=== PATIENT | female | born 1970 | race Caucasian/White ===

== ENCOUNTER 2018-02-26 15:14 | Inpatient (IN) | payer SELFPAY ==
--- NOTE | 2018-02-26 16:20 | ER Document Report ---
ED Medical Screen (RME) - General Chief Complaint: Vomiting Stated Complaint: VOMITING/BACK AND STOMACH PAIN Time Seen by Provider: 02/26/18 16:11 Mode of Arrival: Ambulatory Information source: Patient TRAVEL OUTSIDE OF THE [place] IN LAST 30 DAYS: No - HPI Notes: 02/26/18 16:17 47 yr old female with a hx of abdominal pain with n/v, jaundice and has not had a bowel movement in 10 days 10 days. Reports last alcoholic drink was 7 days ago, normally has 2 shots per night. Denies any cp and sob but is tachycardiac with triage vitals. Patient has not seen by her primary care provider. Patient smokes roughly half a pack a day for at least 20 years. Patient denies a history of alcoholism however she frequently drinks etoh. lungs CTA S1 S2 tachycardiac noted yellow appearing skin with yellow sclera - Related Data Allergies/Adverse Reactions: No Known Allergies Allergy (Unverified 02/26/18 15:18) Physical Exam - Vital signs Vitals: Temp Pulse Resp BP Pulse Ox 98.8 F 123 H 20 169/83 H 93 02/26/18 15:30 02/26/18 15:30 02/26/18 15:30 02/26/18 15:30 02/26/18 15:30 Course - Vital Signs Vital signs: Temp Pulse Resp BP Pulse Ox 98.8 F 123 H 20 169/83 H 93 02/26/18 15:30 02/26/18 15:30 02/26/18 15:30 02/26/18 15:30 02/26/18 15:30 Doctor's Discharge - Discharge Referrals: RICHMOND WARD MD [Primary Care Provider] - Follow up as needed
--- NOTE | 2018-02-26 17:48 | RADIOLOGY REPORT (SQ) ---
EXAM DESCRIPTION: CHEST SINGLE VIEW COMPLETED DATE/TIME: 02/26/2018 5:41 pm REASON FOR STUDY: tachycardia with abd pain COMPARISON: None. EXAM PARAMETERS: NUMBER OF VIEWS: One view. TECHNIQUE: Single frontal radiographic view of the chest acquired. RADIATION DOSE: NA LIMITATIONS: None. FINDINGS: LUNGS AND PLEURA: No opacities, masses or pneumothorax. No pleural effusion. MEDIASTINUM AND HILAR STRUCTURES: No masses. Contour normal. HEART AND VASCULAR STRUCTURES: Heart normal in size. Normal vasculature. BONES: No acute findings. HARDWARE: None in the chest. OTHER: No other significant finding. IMPRESSION: NO ACUTE RADIOGRAPHIC FINDING IN THE CHEST. TECHNICAL DOCUMENTATION: JOB ID: [id number] [employer]- All Rights Reserved Reading location - IP/workstation name: [email or web address]
[2018-02-26 18:00] LABS: HEMATOCRIT 26.7 % (36.0-47.0); MEAN CORPUSCULAR HEMOGLOBIN 42.9 pg (27.0-33.4); MEAN CORPUSCULAR HGB CONC 33.8 g/dL (32.0-36.0); PLATELET COUNT 197 10^3/uL (150-450); RED CELL DISTRIBUTION WIDTH 20.8 % (11.5-14.0); WHITE BLOOD COUNT 14.9 10^3/uL (4.0-10.5)
[2018-02-26] MEDS ORDERED: ONDANSETRON HCL INJ/PF 4 MG/2 ML SDV IV ONE (18:07)
[2018-02-26 18:15] LABS: ALANINE AMINOTRANSFERASE 34 U/L (9-52); ALBUMIN 3.7 g/dL (3.5-5.0); ALKALINE PHOSPHATASE 214 U/L (38-126); BILIRUBIN,DIRECT 10.2 mg/dL (0.0-0.4); BILIRUBIN,TOTAL 12.5 mg/dL (0.2-1.3); BLOOD UREA NITROGEN 11 mg/dL (7-20); CREATINE KINASE 22 U/L (30-135); GLUCOSE 102 mg/dL (75-110); LIPASE 1620.3 U/L (23-300)
[2018-02-26 18:20] LABS: CARBON DIOXIDE 37 mmol/L (22-30); CHLORIDE 75 mmol/L (98-107); SODIUM 136.4 mmol/L (137-145)
[2018-02-26 18:21] LABS: ASPARTATE AMINO TRANSFERASE 308 U/L (14-36)
[2018-02-26 18:26] LABS: ANION GAP 24 (5-19)
[2018-02-26 18:27] LABS: CREATINE KINASE MB 0.29 ng/mL (<4.55); TROPONIN I 0.019 ng/mL
[2018-02-26 18:31] LABS: POTASSIUM 2.8 mmol/L (3.6-5.0)
[2018-02-26 18:33] LABS: ABSOLUTE LYMPHOCYTES# (MANUAL) 1.5 10^3/uL (0.5-4.7); ABSOLUTE MONOCYTES # (MANUAL) 0.1 10^3/uL (0.1-1.4); ABSOLUTE NEUTROPHILS# (MANUAL) 13.3 10^3/uL (1.7-8.2); BAND NEUTROPHILS % (MANUAL) 3 % (3-5); BASOPHILS % (MANUAL) 0 % (0-2); EOSINOPHILS % (MANUAL) 0 % (0-6); INTERNATIONAL RATION (INR) 1.42; LYMPHOCYTES % (MANUAL) 9 % (13-45); MONOCYTES % (MANUAL) 1 % (3-13); NUCLEATED RED BLOOD CELLS 1 /100 WBC (0); PROTHROMBIN TIME 18.1 SEC (11.4-15.4); SEGMENTED NEUTROPHILS % (MAN) 86 % (42-78); TOTAL CELLS COUNTED 100
[2018-02-26] MEDS: NORMAL SALINE 1000 ML 1,000 ML IV PRN ×3 (18:33→23:15)
[2018-02-26 18:34] LABS: PARTIAL THROMBOPLASTIN TIME 37.3 SEC (23.5-35.8)
[2018-02-26 18:35] LABS: ANISOCYTOSIS 2+; POIKILOCYTOSIS SLIGHT; POLYCHROMASIA 1+; TOXIC GRANULATION SLIGHT
[2018-02-26] MEDS ORDERED: POTASSIUM CHLORIDE 10 MEQ CAPSULE.ER PO ONE (18:35)
[2018-02-26] MEDS ORDERED: HYDROMORPHONE HCL INJ/PF 2 MG/ML AMPULE IV ONE (18:35)
[2018-02-26 18:36] LABS: MEAN CORPUSCULAR VOLUME 127 fl (80-97); PLATELET COMMENT ADEQUATE; TEAR DROP CELLS SLIGHT
--- NOTE | 2018-02-26 18:41 | ER Document Report ---
ED GI/ - General Chief Complaint: Vomiting Stated Complaint: VOMITING/BACK AND STOMACH PAIN Time Seen by Provider: 02/26/18 16:11 Mode of Arrival: Ambulatory Notes: The patient is a 47-year-old female, past medical history intermittent drinking , , presents with 10 days of nausea, vomiting, watery diarrhea and increased upper abdominal pain. She also noticed that her eyes were yellow. Patient has not had an alcoholic drink for the past week. She denies urinary symptoms, hematemesis, rash, flank pain, blood in her stool, fevers or chest pain. TRAVEL OUTSIDE OF THE [place] IN LAST 30 DAYS: No - Related Data Allergies/Adverse Reactions: No Known Allergies Allergy (Unverified 02/26/18 15:18) Past Medical History - General Information source: Patient - Social History Smoking Status: Current Every Day Smoker Chew tobacco use (# tins/day): No Frequency of alcohol use: Heavy Drug Abuse: None Family History: Reviewed & Not Pertinent Patient has suicidal ideation: No Patient has homicidal ideation: No Renal/ Medical History: Denies: Hx Peritoneal Dialysis Review of Systems - Review of Systems Notes: REVIEW OF SYSTEMS: CONSTITUTIONAL: -fevers, -chills EENT: -eye pain, -difficulty swallowing, -nasal congestion CARDIOVASCULAR: -chest pain, -syncope. RESPIRATORY: -cough, -SOB GASTROINTESTINAL: +upper abdominal pain, +nausea, +vomiting, +diarrhea GENITOURINARY: -dysuria, -hematuria MUSCULOSKELETAL: -back pain, -neck pain SKIN: -rash or skin lesions. HEMATOLOGIC: -easy bruising or bleeding. LYMPHATIC: -swollen, enlarged glands. NEUROLOGICAL: -altered mental status or loss of consciousness, -headache, - neurologic symptoms PSYCHIATRIC: -anxiety, -depression. ALL OTHER SYSTEMS REVIEWED AND NEGATIVE. Physical Exam - Vital signs Vitals: Temp Pulse Resp BP Pulse Ox 98.8 F 123 H 20 169/83 H 93 02/26/18 15:30 02/26/18 15:30 02/26/18 15:30 02/26/18 15:30 02/26/18 15:30 - Notes Notes: PHYSICAL EXAMINATION: GENERAL: Uncomfortable. HEAD: Atraumatic, normocephalic. EYES: Pupils equal round and reactive to light, extraocular movements intact, sclera anicteric, conjunctiva are normal. ENT: nares patent, oropharynx clear without exudates. Moist mucous membranes. NECK: Normal range of motion, supple without lymphadenopathy LUNGS: Breath sounds clear to auscultation bilaterally and equal. No wheezes rales or rhonchi. HEART: Tachycardia, regular rhythm ABDOMEN: Fluid wave, moderate epigastric and RUQ tenderness, normoactive bowel sounds. No guarding, no rebound. No masses appreciated. EXTREMITIES: Normal range of motion, no pitting or edema. No cyanosis. NEUROLOGICAL: Cranial nerves grossly intact. Normal speech, normal gait. Normal sensory and motor exams. PSYCH: Normal mood, normal affect. SKIN: Warm, Dry, normal turgor, no rashes or lesions noted. Course - Re-evaluation Re-evalutation: Patient with signs and symptoms of pancreatitis. With her elevated LFTs and bilirubin, ultrasound of her right upper quadrant performed, which showed fatty infiltrate of her liver, but no biliary pathology. Her pain and nausea are under control. She does have a leukocytosis, tachycardia and elevated lactate. Elevated lactate may related to severe sepsis, but this may also be elevated due to decreased clearance of lactate due to her liver dysfunction. Patient was pancultured and antibiotics started after 30 cc/kg IV fluids were given. Her blood pressure remained normal. Spoke to Dr. Meneses (Hospitalist) and she has accepted the patient to Tele. - Vital Signs Vital signs: Temp Pulse Resp BP Pulse Ox 98.3 F 123 H 23 H 168/88 H 90 L 02/26/18 20:00 02/26/18 15:30 02/26/18 21:45 02/26/18 18:40 02/26/18 21:45 - Laboratory Result Diagrams: 02/26/18 17:32 02/26/18 17:32 Laboratory results interpreted by me: 02/26/18 02/26/18 02/26/18 17:32 17:32 17:32 WBC 14.9 H RBC 2.10 L Hgb 9.0 L Hct 26.7 L MCV 127 H MCH 42.9 H RDW 20.8 H Seg Neuts % (Manual) 86 H Lymphocytes % (Manual) 9 L Monocytes % (Manual) 1 L Abs Neuts (Manual) 13.3 H PT 18.1 H APTT 37.3 H VBG pH VBG HCO3 Sodium 136.4 L Potassium 2.8 L* Chloride 75 L Carbon Dioxide 37 H Anion Gap 24 H Est GFR (Non-Af Amer) 50 L Lactic Acid Calcium 11.0 H Total Bilirubin 12.5 H Direct Bilirubin 10.2 H AST 308 H Alkaline Phosphatase 214 H Creatine Kinase 22 L Lipase 1620.3 H Urine Protein Urine Glucose (UA) Urine Blood Urine Nitrite Urine Bilirubin Urine Urobilinogen 02/26/18 02/26/18 02/26/18 17:59 20:16 20:16 WBC RBC Hgb Hct MCV MCH RDW Seg Neuts % (Manual) Lymphocytes % (Manual) Monocytes % (Manual) Abs Neuts (Manual) PT APTT VBG pH 7.49 H VBG HCO3 37.3 H Sodium Potassium Chloride Carbon Dioxide Anion Gap Est GFR (Non-Af Amer) Lactic Acid 6.7 H Calcium Total Bilirubin Direct Bilirubin AST Alkaline Phosphatase Creatine Kinase Lipase Urine Protein 30 H Urine Glucose (UA) 50 H Urine Blood SMALL H Urine Nitrite POSITIVE H Urine Bilirubin MODERATE H Urine Urobilinogen 4.0 H - Diagnostic Test Radiology reviewed: Image reviewed, Reports reviewed Radiology results interpreted by me: CXR: NAD CT A/P: Moderate inflammatory changes in the peripancreatic soft tissues and retroperitoneum. Hepatomegaly with diffuse fatty infiltration. RUQ US: Fatty infiltration of the liver. No acute biliary finding. - EKG Interpretation by Me EKG shows normal: Sinus rhythm, Metter Rate: Tachycardia Metter/QRS: Left axis deviation When compared to previous EKG there are: No significant change Discharge - Discharge Clinical Impression: Hypokalemia, Elevated LFTs, Elevated lactic acid level Pancreatitis Qualifiers: Chronicity: acute Pancreatitis type: unspecified pancreatitis type Acute pancreatitis complication: unspecified Qualified Code(s): K85.90 - Acute pancreatitis without necrosis or infection, unspecified Sepsis Qualifiers: Sepsis type: sepsis due to unspecified organism Qualified Code(s): A41.9 - Sepsis, unspecified organism Condition: Stable Disposition: ADMITTED INPATIENT Admitting Provider: Hospitalist - [place] [facility] Admitted: Telemetry Referrals: RICHMOND WARD MD [Primary Care Provider] - Follow up as needed
[2018-02-26] MEDS ORDERED: DEXTROSE 5%-1/2 NORMAL SALINE 1,000 ML IV ONE (18:50)
[2018-02-26 18:51] LABS: APPEARANCE,URINE CLOUDY; BILIRUBIN,URINE MODERATE (NEGATIVE); COLOR,URINE AMBER; GLUCOSE, URINE 50 mg/dL (NEGATIVE); KETONES,URINE NEGATIVE (NEGATIVE); LEUKOCYTE ESTERASE,URINE NEGATIVE (NEGATIVE); NITRITE,URINE POSITIVE (NEGATIVE); PROTEIN,URINE 30 mg/dL (NEGATIVE)
[2018-02-26] MEDS ORDERED: THIAMINE HCL 100 MG, FOLIC ACID 1 MG in NORMAL SALINE 250 ML IV ONE (18:51)
[2018-02-26 19:18] LABS: URINE AMPHETAMINES SCREEN NEGATIVE; URINE BARBITURATES SCREEN NEGATIVE; URINE BENZODIAZEPINES SCREEN NEGATIVE; URINE COCAINE SCREEN NEGATIVE; URINE MARIJUANA (THC) SCREEN NEGATIVE; URINE METHADONE SCREEN NEGATIVE; URINE PHENCYCLIDINE SCREEN NEGATIVE
--- NOTE | 2018-02-26 19:30 | RADIOLOGY REPORT (SQ) ---
EXAM DESCRIPTION: CT ABD/PELVIS WITH IV ONLY COMPLETED DATE/TIME: 02/26/2018 7:18 pm REASON FOR STUDY: no BM x 10 days, +vomiting x 10 days COMPARISON: None. TECHNIQUE: CT scan of the abdomen and pelvis performed using helical scanning technique with dynamic intravenous contrast injection. No oral contrast. Images reviewed with lung, soft tissue, and bone windows. Reconstructed coronal and sagittal MPR images reviewed. Delayed images for evaluation of the urinary system also acquired. All images stored on PACS. All CT scanners at this facility use dose modulation, iterative reconstruction, and/or weight based d osing when appropriate to reduce radiation dose to as low as reasonably achievable (ALARA). [facility]: Dose Right [facility]: CareDose [facility]: Dose Right [facility]: Teradose 4D [facility]: [employer] CONTRAST TYPE AND DOSE: contrast/concentration: Isovue 370.00 mg/ml; Total Contrast Delivered: 71.0 ml; Total Saline Delivered: 41.0 ml RENAL FUNCTION: GFR > 60. RADIATION DOSE: CT Rad equipment meets quality standard of care and radiation dose reduction techniq ues were employed. CTDIvol: 9.5 - 13.2 mGy. DLP: 2047 mGy-cm.. LIMITATIONS: None. FINDINGS: LOWER CHEST: No significant findings. No nodules or infiltrates. LIVER: Diffuse fatty infiltration. Enlarged size. No masses. No dilated ducts. SPLEEN: Normal size. No focal lesions. PANCREAS: No significant calcifications. Moderate adjacent inflammation. Pancreatic duct not dilate d. GALLBLADDER: No identified stones by CT criteria. No inflammatory changes to suggest cholecystitis. ADRENAL GLANDS: No significant masses or asymmetry. RIGHT KIDNEY AND URETER: No solid masses. No significant calcifications. No hydronephrosis or hyd roureter. LEFT KIDNEY AND URETER: No solid masses. No significant calcifications. No hydronephrosis or hydr oureter. AORTA AND VESSELS: No aneurysm. No dissection. Renal arteries, SMA, celiac without stenosis. RETROPERITONEUM: No bulky retroperitoneal adenopathy. Moderate inflammatory changes. BOWEL AND PERITONEAL CAVITY: No masses or inflammatory changes. No free fluid or peritoneal masses. APPENDIX: Normal. PELVIS: No mass. No free fluid. Decompressed bladder. ABDOMINAL WALL: No masses. No hernias. BONES: No acute findings. OTHER: No other significant finding. IMPRESSION: Moderate inflammatory changes in the peripancreatic soft tissues and retroperitoneum. Hepatomegaly with diffuse fatty infiltration. TECHNICAL DOCUMENTATION: JOB ID: [id number] [id number] Quality ID # [id number]: Final reports with documentation of one or more dose reduction techniques (e.g., Au tomated exposure control, adjustment of the mA and/or kV according to patient size, use of iterative reconstruction technique) 2010 [employer]- All Rights Reserved Reading location - IP/workstation name: [email or web address]
[2018-02-26] MEDS ORDERED: AMPICILLIN SOD/SULBACTAM 3 GM VIAL IV ONE (19:43)
[2018-02-26] MEDS: POTASSI CL 20 MEQ/50 ML RIDER 20 MEQ/50 ML RTUPB IV SCH ×2 (20:12→22:03)
[2018-02-26 20:31] LABS: VENOUS BLOOD BASE EXCESS 12.2 mmol/L; VENOUS BLOOD HCO3 37.3 mmol/L (20-32); VENOUS BLOOD PCO2 50.7 mmHg (35-63); VENOUS BLOOD PH 7.49 (7.30-7.42)
[2018-02-26] MEDS ORDERED: NORMAL SALINE 1000 ML 1,000 ML IV ONE (21:11)
--- NOTE | 2018-02-26 21:12 | RADIOLOGY REPORT (SQ) ---
EXAM DESCRIPTION: U/S ABDOMEN LIMITED W/O DOP COMPLETED DATE/TIME: 02/26/2018 9:00 pm REASON FOR STUDY: RUQ tenderness, jaundice, elevated LFTs COMPARISON: None. TECHNIQUE: Dynamic and static grayscale images acquired of the right upper quadrant and recorded on PACS. Additional selected color Doppler and spectral images recorded. LIMITATIONS: Study limited due to acoustical interference from fat or from air in the bowel. FINDINGS: PANCREAS: Visualized pancreas and duct normal. Parts of pancreas poorly seen secondary to acoustical interference from fat or from air in the bowel. LIVER: No masses. Echotexture heterogeneously increased consistent with fatty infiltration. LIVER VASCULATURE: Normal directional flow of the main portal vein and hepatic veins. GALLBLADDER: No stones. Normal wall thickness. No pericholecystic fluid. ULTRASOUND-DETECTED HEBERT'S SIGN: Negative. INTRAHEPATIC DUCTS AND COMMON DUCT: CBD and intrahepatic ducts normal caliber. No filling defects. INFERIOR VENA CAVA: limited due to acoustical interference from fat or from air in the bowel. AORTA: limited due to acoustical interference from fat or from air in the bowel. RIGHT KIDNEY: Normal size. Normal echogenicity. No solid or suspicious masses. No hydronephrosis. No calcifications. PERITONEAL CAVITY AND RIGHT PLEURAL SPACE: No ascites or effusions. OTHER: No other significant finding. IMPRESSION: Fatty infiltration of the liver. No acute biliary finding. TECHNICAL DOCUMENTATION: JOB ID: [id number] [id number] 2010 [employer]- All Rights Reserved Reading location - IP/workstation name: [email or web address]
[2018-02-26] MEDS ORDERED: DEXTROSE 40% GEL 15 GM TUBE PO PRN ×2 (22:16)
[2018-02-26] MEDS ORDERED: MAG HYDROX/AL HYDROX/SIMETH SUSP 30 ML UDCUP PO PRN (22:16)
[2018-02-26] MEDS ORDERED: DEXTROSE 50%-WATER 25 GM/50 ML DISP.SYRIN IV PRN ×2 (22:16)
[2018-02-26] MEDS ORDERED: GLUCAGON,HUMAN RECOMB 1 MG INJ SUBCUT PRN (22:16)
[2018-02-26] MEDS ORDERED: MORPHINE SULFATE 10 MG/ML INJ IV ONE (22:17)
[2018-02-26] MEDS ORDERED: ONDANSETRON 4 MG TAB.RAPDIS PO ONE (22:19)
[2018-02-26 23:08] LABS: ACETAMINOPHEN < 10 ug/mL (10-30); SALICYLATE < 1.0 mg/dL (2.0-20.0)
[2018-02-26] MEDS: HYDROMORPHONE HCL INJ/PF 2 MG/ML AMPULE IV PRN (23:09)
[2018-02-26] MEDS: PANTOPRAZOLE SODIUM 40 MG VIAL IV SCH (23:12)
--- NOTE | 2018-02-26 23:51 | EKG REPORT ---
SEVERITY:- BORDERLINE ECG - SINUS TACHYCARDIA LEFT AXIS DEVIATION CONSIDER ANTERIOR INFARCT : Confirmed by: Jessica Hinson MD 26-Feb-2018 23:50:52
[2018-02-27] MEDS: POTASSI CL 20 MEQ/50 ML RIDER 20 MEQ/50 ML RTUPB IV SCH ×2 (00:55→04:21)
[2018-02-27] MEDS ORDERED: POTASSI CL 20 MEQ/50 ML RIDER 20 MEQ/50 ML RTUPB IV ONE (01:40)
--- NOTE | 2018-02-27 01:48 | PDOC H&P ---
History of Present Illness Admission Date/PCP: 02/26/18 22:00 RICHMOND WARD MD Patient complains of: Persistent nausea and vomiting History of Present Illness: AMBREEN ZENG is a 47 year old female with alcohol dependence comes to the emergency department complaining of persistent nausea and vomiting has been worsening, she has been vomiting every 30 minutes the day of admission. Patient tells me that her symptoms started 10 days ago with nausea, vomiting, watery non-bloody diarrhea and abdominal pain in the epigastric and mid abdominal area, sharp in nature, across the abdomen radiated to the back, up to 10/10 intensity. At the same time her boyfriend who is at the bedside noticed her eyes and skin turning yellow. Patient has been unable to have any solid food or any fluid for the last few days as she is vomiting everything, denies blood in the vomit. Denies fever or chills. Noticed her urine with bad odor and dark, but denies dysuria, hematuria or frequency. As me that she takes aspirin and ibuprofen occasionally, denies taking aspirin. Does not take any prescribed medications at home. Patient drinks on a daily basis, last drink 2 days ago. Laboratory was done in the emergency department with multiple laboratory abnormalities, consistent with acute pancreatitis, deranged LFTs, UTI, leukocytosis with left shift and others detailed below. Right upper ultrasound is fatty infiltrate of her liver and hepatomegaly CT abdomen and pelvis shows pancreatitis Patient was pancultured and antibiotic started after 30 cc/kg IV fluids given. Her blood pressure has remained slightly elevated but the heart rate has been elevated in the 120s. Lactic acid back at 6.7. Social History Information Source: Patient, Relative - Boyfriend Lives with: Spouse/Significant other Smoking Status: Current Every Day Smoker Cigarettes Packs Per Day: 0.5 Last Time Smoked: 1 week ago Frequency of Alcohol Use: Heavy - Drinks on a daily basis for the last 4 years Amount of Alcoholic Beverages Per Day: 56 drinks a day, Rum Last Alcohol Use: 02/25/18 Hx Recreational Drug Use: No Family History Family History: Reviewed & Not Pertinent Family History: Mother of gallbladder complications. Father at 68 years old with history of hypertension Parental Family History Reviewed: Yes - As Above Children Family History Reviewed: NA Sibling(s) Family History Reviewed.: NA Medication/Allergy Allergies/Adverse Reactions: No Known Allergies Allergy (Unverified 02/26/18 15:18) Review of Systems Review of Systems: As outlined in the HPI, all others negative Physical Exam Vital Signs: Temp Pulse Resp BP Pulse Ox 98.3 F 123 H 15 125/72 95 02/26/18 20:00 02/26/18 15:30 02/27/18 00:01 02/27/18 00:01 02/27/18 00:01 Intake & Output 02/25/18 02/26/18 02/27/18 06:59 06:59 06:59 Intake Total 2095 Output Total 1 Balance 2094 Additional comments: General appearance: Ill looking, jaundice, alert and cooperative, and appears to be in no acute distress Head: Normocephalic Eyes: PEERL, EOMI, vision is grossly intact, sclera icteric. ears: External auditory canal and tympanic membranes clear, hearing grossly intact. Nose: No nasal discharge. Throat: Oral cavity and pharynx normal. Oral mucosa very dry. No inflammation, swelling, exudate or lesions. Neck: Neck supple, nontender without lymphadenopathy, masses or thyromegaly. Cardiac: Normal S1 and S2. No S3, S4 or murmurs. Rhythm is regular and tachycardic. There is no peripheral edema, cyanosis or pallor. Extremities are warm and well perfused. Capillary refill is less than 2 seconds. No carotid bruits. Lungs: Clear to auscultation and percussion without rales, rhonchi, wheezing or diminished breath sounds. Not using accessory muscles. Abdomen: Positive bowel sounds. Soft. Diffused tenderness in the epigastric area, mild distended. No guarding or rebound. No masses. Liver and spleen unable to evaluate secondary to pain and body habitus. Extremities: No significant deformity or joint abnormality. No edema. Peripheral pulses intact. No varicosities. Neurological: Cranial nerves II through XII grossly intact. Strength and sensation symmetric and intact throughout. Reflexes 2+ throughout. Skin: Skin and mucosa jaundice, texture and turgor with no lesions or eruptions , warm and dry. Psychiatric: The mental examination revealed the patient was oriented to person , place, and time. The patient was able to demonstrate good judgment on recent , without hallucinations, abnormal affect or abnormal behaviors. Results Laboratory Results: 02/26/18 02/26/18 02/26/18 17:32 17:32 17:32 WBC 14.9 H RBC 2.10 L Hgb 9.0 L Hct 26.7 L MCV 127 H MCH 42.9 H MCHC 33.8 RDW 20.8 H Plt Count 197 Seg Neuts % (Manual) 86 H Band Neutrophils % 3 Lymphocytes % (Manual) 9 L Atypical Lymphs % 1 Monocytes % (Manual) 1 L Abs Neuts (Manual) 13.3 H Abs Lymphs (Manual) 1.5 Platelet Comment ADEQUATE Polychromasia 1+ Poikilocytosis SLIGHT Basophilic Stippling PRESENT Anisocytosis 2+ Macrocytosis 4+ Tear Drop Cells SLIGHT PT INR APTT VBG pH VBG pCO2 VBG HCO3 Sodium 136.4 L Potassium 2.8 L* Chloride 75 L Carbon Dioxide 37 H Anion Gap 24 H BUN 11 Creatinine 1.17 Est GFR ( Amer) > 60 Est GFR (Non-Af Amer) 50 L Glucose 102 Lactic Acid Calcium 11.0 H Total Bilirubin 12.5 H Direct Bilirubin 10.2 H AST 308 H ALT 34 Alkaline Phosphatase 214 H Ammonia Creatine Kinase 22 L CK-MB (CK-2) 0.29 Troponin I 0.019 Albumin 3.7 Lipase 1620.3 H Urine Color Urine Appearance Urine pH Ur Specific [place] Urine Protein Urine Glucose (UA) Urine Ketones Urine Blood Urine Nitrite Urine Bilirubin Urine Urobilinogen Urine WBC (Auto) Urine RBC (Auto) U Hyaline Cast (Auto) Urine Bacteria (Auto) Urine WBC Clumps Squamous Epi Cells Auto U Non-Squamous Epis Auto Urine Mucus (Auto) Urine Opiates Screen Ur Barbiturates Screen Ur Phencyclidine Scrn Ur Amphetamines Screen U Benzodiazepines Scrn Urine Cocaine Screen U Marijuana (THC) Screen Hepatitis A IgM Ab Hep Bs Antigen Hep B Core IgM Ab Hepatitis C Antibody 02/26/18 02/26/18 02/26/18 17:32 17:32 17:59 WBC RBC Hgb Hct MCV MCH MCHC RDW Plt Count Seg Neuts % (Manual) Band Neutrophils % Lymphocytes % (Manual) Atypical Lymphs % Monocytes % (Manual) Abs Neuts (Manual) Abs Lymphs (Manual) Platelet Comment Polychromasia Poikilocytosis Basophilic Stippling Anisocytosis Macrocytosis Tear Drop Cells PT 18.1 H INR 1.42 APTT 37.3 H VBG pH VBG pCO2 VBG HCO3 Sodium Potassium Chloride Carbon Dioxide Anion Gap BUN Creatinine Est GFR ( Amer) Est GFR (Non-Af Amer) Glucose Lactic Acid Calcium Total Bilirubin Direct Bilirubin AST ALT Alkaline Phosphatase Ammonia Creatine Kinase CK-MB (CK-2) Troponin I Albumin Lipase Urine Color SUDEEP Urine Appearance CLOUDY Urine pH 5.0 Ur Specific [place] 1.020 Urine Protein 30 H Urine Glucose (UA) 50 H Urine Ketones NEGATIVE Urine Blood SMALL H Urine Nitrite POSITIVE H Urine Bilirubin MODERATE H Urine Urobilinogen 4.0 H Urine WBC (Auto) 10 Urine RBC (Auto) 1 U Hyaline Cast (Auto) 40 Urine Bacteria (Auto) 3+ Urine WBC Clumps OCC Squamous Epi Cells Auto 15 U Non-Squamous Epis Auto 2 Urine Mucus (Auto) MOD Urine Opiates Screen Ur Barbiturates Screen Ur Phencyclidine Scrn Ur Amphetamines Screen U Benzodiazepines Scrn Urine Cocaine Screen U Marijuana (THC) Screen Hepatitis A IgM Ab Pending Hep Bs Antigen Pending Hep B Core IgM Ab Pending Hepatitis C Antibody Pending 02/26/18 02/26/18 02/26/18 17:59 18:30 20:16 WBC RBC Hgb Hct MCV MCH MCHC RDW Plt Count Seg Neuts % (Manual) Band Neutrophils % Lymphocytes % (Manual) Atypical Lymphs % Monocytes % (Manual) Abs Neuts (Manual) Abs Lymphs (Manual) Platelet Comment Polychromasia Poikilocytosis Basophilic Stippling Anisocytosis Macrocytosis Tear Drop Cells PT INR APTT VBG pH 7.49 H VBG pCO2 50.7 VBG HCO3 37.3 H Sodium Potassium Chloride Carbon Dioxide Anion Gap BUN Creatinine Est GFR ( Amer) Est GFR (Non-Af Amer) Glucose Lactic Acid Calcium Total Bilirubin Direct Bilirubin AST ALT Alkaline Phosphatase Ammonia 13.7 Creatine Kinase CK-MB (CK-2) Troponin I Albumin Lipase Urine Color Urine Appearance Urine pH Ur Specific [place] Urine Protein Urine Glucose (UA) Urine Ketones Urine Blood Urine Nitrite Urine Bilirubin Urine Urobilinogen Urine WBC (Auto) Urine RBC (Auto) U Hyaline Cast (Auto) Urine Bacteria (Auto) Urine WBC Clumps Squamous Epi Cells Auto U Non-Squamous Epis Auto Urine Mucus (Auto) Urine Opiates Screen NEGATIVE Ur Barbiturates Screen NEGATIVE Ur Phencyclidine Scrn NEGATIVE Ur Amphetamines Screen NEGATIVE U Benzodiazepines Scrn NEGATIVE Urine Cocaine Screen NEGATIVE U Marijuana (THC) Screen NEGATIVE Hepatitis A IgM Ab Hep Bs Antigen Hep B Core IgM Ab Hepatitis C Antibody 02/26/18 20:16 WBC RBC Hgb Hct MCV MCH MCHC RDW Plt Count Seg Neuts % (Manual) Band Neutrophils % Lymphocytes % (Manual) Atypical Lymphs % Monocytes % (Manual) Abs Neuts (Manual) Abs Lymphs (Manual) Platelet Comment Polychromasia Poikilocytosis Basophilic Stippling Anisocytosis Macrocytosis Tear Drop Cells PT INR APTT VBG pH VBG pCO2 VBG HCO3 Sodium Potassium Chloride Carbon Dioxide Anion Gap BUN Creatinine Est GFR ( Amer) Est GFR (Non-Af Amer) Glucose Lactic Acid 6.7 H Calcium Total Bilirubin Direct Bilirubin AST ALT Alkaline Phosphatase Ammonia Creatine Kinase CK-MB (CK-2) Troponin I Albumin Lipase Urine Color Urine Appearance Urine pH Ur Specific [place] Urine Protein Urine Glucose (UA) Urine Ketones Urine Blood Urine Nitrite Urine Bilirubin Urine Urobilinogen Urine WBC (Auto) Urine RBC (Auto) U Hyaline Cast (Auto) Urine Bacteria (Auto) Urine WBC Clumps Squamous Epi Cells Auto U Non-Squamous Epis Auto Urine Mucus (Auto) Urine Opiates Screen Ur Barbiturates Screen Ur Phencyclidine Scrn Ur Amphetamines Screen U Benzodiazepines Scrn Urine Cocaine Screen U Marijuana (THC) Screen Hepatitis A IgM Ab Hep Bs Antigen Hep B Core IgM Ab Hepatitis C Antibody Impressions: Abdomen/Pelvis CT 02/26/18 16:12 IMPRESSION: Moderate inflammatory changes in the peripancreatic soft tissues and retroperitoneum. Hepatomegaly with diffuse fatty infiltration. Chest X-Ray 02/26/18 16:15 IMPRESSION: NO ACUTE RADIOGRAPHIC FINDING IN THE CHEST. Abdomen Ultrasound 02/26/18 18:35 IMPRESSION: Fatty infiltration of the liver. No acute biliary finding. Assessment & Plan - Diagnosis (1) Acute pancreatitis Qualifiers: Pancreatitis type: alcohol induced Is this a current diagnosis for this admission?: Yes Plan: Alcohol-induced acute pancreatitis in this patient with alcohol dependence, lipase 1620, 2 L IV fluid normal saline bolus ordered, I will order 1 more liter and continue with normal saline at 200 cc/h, patient will remain n.p.o., will repeat lipase in the morning. IV pain medications, IV antiemetics. IV Protonix. Last drink 2 days ago, serum alcohol levels negative. (2) Elevated LFTs Is this a current diagnosis for this admission?: Yes Plan: Deranged LFTs, AST 308, ALT 34, AF 214, TB 12.5, DB 10, right upper ultrasound negative for gallbladder abnormalities, can be inflammatory secondary to acute pancreatitis or also alcohol induced. To complete the workup I am sending serum Tylenol and salicylate levels. Hepatitis panel pending. (3) UTI (urinary tract infection) Qualifiers: Indwelling urinary catheter type: unspecified Is this a current diagnosis for this admission?: Yes Plan: I will place the patient on IV Rocephin, please follow blood cultures and urine cultures, patient is on aggressive IV fluid hydration. (4) Lactic acidosis Is this a current diagnosis for this admission?: Yes Plan: Lactic acid 6.7, likely multifactorial, I will place order for lactic acid every 4 hours until normalized. (5) Metabolic alkalosis Is this a current diagnosis for this admission?: Yes (6) Coagulopathy Is this a current diagnosis for this admission?: Yes Plan: INR 1.42, patient likely has liver cirrhosis. She is not on any medication at home. (7) Hypokalemia Is this a current diagnosis for this admission?: Yes Plan: Potassium 2.8, will replete with 20 mEq IV. (8) Hypochloremia Is this a current diagnosis for this admission?: Yes Plan: Hypochloremia associated to metabolic alkalosis, likely secondary to her intractable vomiting, tells me that she has been vomiting every 30 minutes. Will reassess in the morning after aggressive IV fluid hydration. - Time Time Spent: 50 to 70 Minutes - Inpatient Certification Based on my medical assessment, after consideration of the patient's comorbidities, presenting symptoms, or acuity I expect that the services needed warrant INPATIENT care.: Yes I certify that my determination is in accordance with my understanding of Medicare's requirements for reasonable and necessary INPATIENT services [42 CFR 412.3e].: Yes Medical Necessity: Need Close Monitoring Due to Risk of Patient Decompensation, Need For IV Fluids, Risk of Complication if Not Cared For in Hospital
[2018-02-27] MEDS: HYDROMORPHONE HCL INJ/PF 2 MG/ML AMPULE IV PRN ×4 (04:20→22:13)
[2018-02-27] MEDS: METOCLOPRAMIDE HCL INJ/PF 10 MG/2 ML SDV IV PRN (06:05)
[2018-02-27] MEDS: HEPARIN SOD (PORCINE) 5,000 UNIT/ML 1 ML SYRINGE SUBCUT SCH ×3 (06:10→22:13)
[2018-02-27 06:28] LABS: INTERNATIONAL RATION (INR) 1.49; PROTHROMBIN TIME 18.8 SEC (11.4-15.4)
[2018-02-27 06:35] LABS: ABSOLUTE BASOPHILS # (AUTO) 0.1 10^3/uL (0.0-0.2); ABSOLUTE EOSINOPHILS # (AUTO) 0.1 10^3/uL (0.0-0.6); ABSOLUTE LYMPHOCYTES (AUTO) 1.9 10^3/uL (0.5-4.7); ABSOLUTE MONOCYTES (AUTO) 0.7 10^3/uL (0.1-1.4); ABSOLUTE NEUT (AUTO) 11.4 10^3/uL (1.7-8.2); BASOPHILS % (AUTO) 0.6 % (0-2); EOSINOPHILS % (AUTO) 0.7 % (0-6); HEMATOCRIT 21.9 % (36.0-47.0); LYMPHOCYTES % (AUTO) 13.4 % (13-45); MEAN CORPUSCULAR HEMOGLOBIN 42.3 pg (27.0-33.4); MEAN CORPUSCULAR HGB CONC 33.4 g/dL (32.0-36.0); MEAN CORPUSCULAR VOLUME 127 fl (80-97); MONOCYTES % (AUTO) 4.7 % (3-13); PLATELET COUNT 160 10^3/uL (150-450); RED BLOOD COUNT 1.73 10^6/uL (3.72-5.28); RED CELL DISTRIBUTION WIDTH 21.7 % (11.5-14.0); SEGMENTED NEUTROPHILS % (AUTO) 80.6 % (42-78); TOTAL CELLS COUNTED % (AUTO) 100 %; WHITE BLOOD COUNT 14.1 10^3/uL (4.0-10.5)
[2018-02-27 06:40] LABS: ARTERIAL BLOOD BASE EXCESS 3.4 mmol/L; ARTERIAL BLOOD FIO2 2L; ARTERIAL BLOOD H2CO3 1.21 mmol/L (1.05-1.35); ARTERIAL BLOOD HCO3 27.6 mmol/L (20-26); ARTERIAL BLOOD O2 SATURATION 96.7 % (94-98); ARTERIAL BLOOD PCO2 40.3 mmHg (35-45); ARTERIAL BLOOD PH 7.45 (7.35-7.45); ARTERIAL BLOOD PO2 83.4 mmHg (80-100); ARTERIAL BLOOD TOTAL CO2 28.9 mmol/L (21-25)
[2018-02-27 06:52] LABS: ALANINE AMINOTRANSFERASE 33 U/L (9-52); ALBUMIN 2.9 g/dL (3.5-5.0); ALKALINE PHOSPHATASE 155 U/L (38-126); ANION GAP 14 (5-19); ASPARTATE AMINO TRANSFERASE 244 U/L (14-36); BILIRUBIN,DIRECT 11.7 mg/dL (0.0-0.4); BILIRUBIN,TOTAL 13.4 mg/dL (0.2-1.3); BLOOD UREA NITROGEN 11 mg/dL (7-20); CALCIUM 8.3 mg/dL (8.4-10.2); CARBON DIOXIDE 30 mmol/L (22-30); CHLORIDE 94 mmol/L (98-107); GLUCOSE 83 mg/dL (75-110); LIPASE 870.3 U/L (23-300); POTASSIUM 3.7 mmol/L (3.6-5.0); TOTAL PROTEIN 6.4 g/dL (6.3-8.2)
[2018-02-27 06:55] LABS: HEMOGLOBIN 7.3 g/dL (12.0-15.5)
[2018-02-27 07:02] LABS: ANISOCYTOSIS 2+; OVALOCYTES 2+; PLATELET COMMENT ADEQUATE; POIKILOCYTOSIS 2+; POLYCHROMASIA SLIGHT; ROULEAUX 2+; STOMATOCYTES SLIGHT
[2018-02-27] MEDS: NORMAL SALINE 1000 ML 1,000 ML IV PRN ×3 (07:15→22:15)
[2018-02-27] MEDS: MAGNESIUM SULFATE 1 GM/D5W 100 ML IV SCH ×2 (09:25→12:40)
[2018-02-27] MEDS ORDERED: CEFTRIAXONE 1 GM/D5W RTU 1 GM/50 ML RTUPB IV SCH (10:00)
[2018-02-27] MEDS ORDERED: MAGNESIUM SULFATE/D5W 1 GM/100 ML RTUPB IV SCH (10:30)
[2018-02-27] MEDS: PANTOPRAZOLE SODIUM 40 MG VIAL IV SCH (12:29)
[2018-02-27] MEDS: CEFTRIAXONE SODIUM 1,000 MG in DEXTROSE 5%-WATER 50 ML IV SCH (14:30)
[2018-02-27 14:54] LABS: PATH REVIEW PATHOLOGIST REVIEWED
--- NOTE | 2018-02-27 18:37 | PDOC PROGRESS REPORT ---
Subjective Progress Note for:: 02/27/18 Subjective:: No adverse events overnight. No new complaints. She starting to have a little urine output. She says her belly is not hurting her anymore. He still does not have much of an appetite. No chest pain or palpitations. No nausea or vomiting. Reason For Visit: ACUTE PANCREATITIS, LACTIC ACIDOSIS Physical Exam Vital Signs: Temp Pulse Resp BP Pulse Ox 99.0 F 115 H 20 124/67 93 02/27/18 14:48 02/27/18 14:48 02/27/18 14:48 02/27/18 14:48 02/27/18 14:48 Intake & Output 02/26/18 02/27/18 02/28/18 06:59 06:59 06:59 Intake Total 2146 2420 Output Total 1 Balance 2145 2420 Weight 75.296 kg General appearance: PRESENT: no acute distress, cooperative, disheveled, obese Respiratory exam: PRESENT: clear to auscultation alejandra, unlabored. ABSENT: rales , rhonchi, tachypnea, wheezes Cardiovascular exam: PRESENT: RRR, +S1, +S2. ABSENT: systolic murmur Vascular exam: PRESENT: normal capillary refill GI/Abdominal exam: PRESENT: hypoactive bowel sounds, soft. ABSENT: guarding, rebound, tenderness Extremities exam: ABSENT: clubbing, pedal edema Musculoskeletal exam: PRESENT: normal inspection. ABSENT: deformity Neurological exam: PRESENT: alert, awake, oriented to person, oriented to place , oriented to time Psychiatric exam: PRESENT: appropriate affect, normal mood Skin exam: PRESENT: dry, warm Results Laboratory Results: 02/27/18 06:15 02/27/18 06:15 02/27/18 02/27/18 02/27/18 00:53 06:15 06:15 WBC 14.1 H RBC 1.73 L Hgb 7.3 L Hct 21.9 L MCV 127 H MCH 42.3 H MCHC 33.4 RDW 21.7 H Plt Count 160 Seg Neutrophils % 80.6 H Lymphocytes % 13.4 Monocytes % 4.7 Eosinophils % 0.7 Basophils % 0.6 Absolute Neutrophils 11.4 H Absolute Lymphocytes 1.9 Absolute Monocytes 0.7 Absolute Eosinophils 0.1 Absolute Basophils 0.1 Carbonic Acid HCO3/H2CO3 Ratio ABG pH ABG pCO2 ABG pO2 ABG HCO3 ABG O2 Saturation ABG Base Excess FiO2 Sodium 138.0 Potassium 3.7 Chloride 94 L Carbon Dioxide 30 Anion Gap 14 BUN 11 Creatinine 1.02 Est GFR ( Amer) > 60 Est GFR (Non-Af Amer) 59 L Glucose 83 Lactic Acid 4.6 H Calcium 8.3 L Phosphorus 2.0 L Magnesium 0.6 L* Total Bilirubin 13.4 H AST 244 H ALT 33 Alkaline Phosphatase 155 H Total Protein 6.4 Albumin 2.9 L Lipase 870.3 H 02/27/18 02/27/18 06:30 09:25 WBC RBC Hgb Hct MCV MCH MCHC RDW Plt Count Seg Neutrophils % Lymphocytes % Monocytes % Eosinophils % Basophils % Absolute Neutrophils Absolute Lymphocytes Absolute Monocytes Absolute Eosinophils Absolute Basophils Carbonic Acid 1.21 HCO3/H2CO3 Ratio 22:1 ABG pH 7.45 ABG pCO2 40.3 ABG pO2 83.4 ABG HCO3 27.6 H ABG O2 Saturation 96.7 ABG Base Excess 3.4 FiO2 2L Sodium Potassium Chloride Carbon Dioxide Anion Gap BUN Creatinine Est GFR ( Amer) Est GFR (Non-Af Amer) Glucose Lactic Acid 3.6 H Calcium Phosphorus Magnesium Total Bilirubin AST ALT Alkaline Phosphatase Total Protein Albumin Lipase Impressions: Abdomen/Pelvis CT 02/26/18 16:12 IMPRESSION: Moderate inflammatory changes in the peripancreatic soft tissues and retroperitoneum. Hepatomegaly with diffuse fatty infiltration. Chest X-Ray 02/26/18 16:15 IMPRESSION: NO ACUTE RADIOGRAPHIC FINDING IN THE CHEST. Abdomen Ultrasound 02/26/18 18:35 IMPRESSION: Fatty infiltration of the liver. No acute biliary finding. Assessment & Plan - Diagnosis (1) Acute pancreatitis Qualifiers: Pancreatitis type: alcohol induced Is this a current diagnosis for this admission?: Yes Plan: N.p.o. IV fluids. Gut rest. (2) UTI (urinary tract infection) Qualifiers: Indwelling urinary catheter type: unspecified Is this a current diagnosis for this admission?: Yes Plan: She is on IV antibiotics. Cultures are pending. (3) Hypomagnesemia Is this a current diagnosis for this admission?: Yes Plan: Gave her a lot of IV magnesium this morning. A repeat level is pending. I suspect she will need more. - Time Time Spent with patient: 25-34 minutes
[2018-02-27] MEDS: MAGNESIUM SULFATE/D5W 1 GM/100 ML RTUPB IV SCH ×2 (22:14→23:27)
[2018-02-28] MEDS: MAGNESIUM SULFATE/D5W 1 GM/100 ML RTUPB IV SCH (00:28)
[2018-02-28] MEDS: HEPARIN SOD (PORCINE) 5,000 UNIT/ML 1 ML SYRINGE SUBCUT SCH ×3 (05:31→21:11)
[2018-02-28] MEDS: HYDROMORPHONE HCL INJ/PF 2 MG/ML AMPULE IV PRN ×2 (05:33→21:11)
[2018-02-28 05:40] LABS: HEPATITIS A AB IGM Negative (Negative); HEPATITIS B CORE AB IGM Negative (Negative); HEPATITS B SURFACE ANTIGEN Negative (Negative)
[2018-02-28] MEDS: RINGERS SOLUTION,LACTATED 1,000 ML IV PRN ×3 (05:42→22:41)
[2018-02-28 08:31] LABS: HEMATOCRIT 19.5 % (36.0-47.0); MEAN CORPUSCULAR HEMOGLOBIN 43.7 pg (27.0-33.4); MEAN CORPUSCULAR HGB CONC 33.7 g/dL (32.0-36.0); MEAN CORPUSCULAR VOLUME 130 fl (80-97); PLATELET COUNT 163 10^3/uL (150-450); RED BLOOD COUNT 1.51 10^6/uL (3.72-5.28); RED CELL DISTRIBUTION WIDTH 21.3 % (11.5-14.0); WHITE BLOOD COUNT 13.9 10^3/uL (4.0-10.5)
[2018-02-28 08:35] LABS: HEMOGLOBIN 6.6 g/dL (12.0-15.5)
[2018-02-28] MEDS: PANTOPRAZOLE SODIUM 40 MG VIAL IV SCH (09:16)
[2018-02-28 09:49] LABS: FOLATE 4.18 ng/mL (>2.76)
[2018-02-28] MEDS ORDERED: NORMAL SALINE 250 ML IV PRN ×2 (10:41)
[2018-02-28] MEDS ORDERED: CYANOCOBALAMIN (VITAMIN B-12) INJ 1000 MCG/1 ML VIAL IM ONE (10:43)
[2018-02-28] MEDS ORDERED: THIAMINE HCL 100 MG, FOLIC ACID 1 MG in NORMAL SALINE 250 ML IV ONE (13:00)
[2018-02-28] MEDS: CEFTRIAXONE SODIUM 1,000 MG in DEXTROSE 5%-WATER 50 ML IV SCH (15:05)
--- NOTE | 2018-02-28 16:12 | PDOC PROGRESS REPORT ---
Subjective Progress Note for:: 02/28/18 Subjective:: No adverse events overnight. No new complaints. Urine output has been excellent. She is asking if she can have something to eat or drink now. No abdominal pain. No chest pain or palpitations. No nausea or vomiting. Reason For Visit: ACUTE PANCREATITIS, LACTIC ACIDOSIS Physical Exam Vital Signs: Temp Pulse Resp BP Pulse Ox 98.9 F 105 H 16 131/62 H 97 02/28/18 15:43 02/28/18 15:43 02/28/18 15:43 02/28/18 15:43 02/28/18 14:43 Intake & Output 02/27/18 02/28/18 03/01/18 06:59 06:59 06:59 Intake Total 2146 4720 1390 Output Total 1 Balance 2145 4720 1390 Weight 75 kg General appearance: PRESENT: no acute distress, cooperative, disheveled, obese Respiratory exam: PRESENT: clear to auscultation alejandra, unlabored. ABSENT: rales , rhonchi, tachypnea, wheezes Cardiovascular exam: PRESENT: RRR, +S1, +S2. ABSENT: systolic murmur Vascular exam: PRESENT: normal capillary refill GI/Abdominal exam: PRESENT: hypoactive bowel sounds, soft. ABSENT: guarding, rebound, tenderness Extremities exam: ABSENT: clubbing, pedal edema Musculoskeletal exam: PRESENT: normal inspection. ABSENT: deformity Neurological exam: PRESENT: alert, awake, oriented to person, oriented to place , oriented to time Psychiatric exam: PRESENT: appropriate affect, normal mood Skin exam: PRESENT: dry, warm Results Laboratory Results: 02/28/18 06:03 02/27/18 06:15 02/27/18 02/28/18 02/28/18 19:53 06:03 06:03 WBC 13.9 H RBC 1.51 L Hgb 6.6 L Hct 19.5 L MCV 130 H MCH 43.7 H MCHC 33.7 RDW 21.3 H Plt Count 163 Magnesium 1.2 L* 2.1 Vitamin B12 Folate Blood Type Antibody Screen 02/28/18 02/28/18 06:03 11:37 WBC RBC Hgb Hct MCV MCH MCHC RDW Plt Count Magnesium Vitamin B12 551.0 Folate 4.18 Blood Type A POSITIVE Antibody Screen NEGATIVE Impressions: Abdomen/Pelvis CT 02/26/18 16:12 IMPRESSION: Moderate inflammatory changes in the peripancreatic soft tissues and retroperitoneum. Hepatomegaly with diffuse fatty infiltration. Chest X-Ray 02/26/18 16:15 IMPRESSION: NO ACUTE RADIOGRAPHIC FINDING IN THE CHEST. Abdomen Ultrasound 02/26/18 18:35 IMPRESSION: Fatty infiltration of the liver. No acute biliary finding. Assessment & Plan - Diagnosis (1) Acute pancreatitis Qualifiers: Pancreatitis type: alcohol induced Is this a current diagnosis for this admission?: Yes Plan: We are stopping her IV fluids and put her on clears monitor her response. (2) UTI (urinary tract infection) Qualifiers: Indwelling urinary catheter type: unspecified Is this a current diagnosis for this admission?: Yes Plan: She is on IV antibiotics. Cultures are pending. (3) Hypomagnesemia Is this a current diagnosis for this admission?: Yes Plan: Resolved. - Time Time Spent with patient: 25-34 minutes
[2018-02-28] MEDS: ACETAMINOPHEN 325 MG TABLET PO PRN (17:28)
[2018-03-01] MEDS: HEPARIN SOD (PORCINE) 5,000 UNIT/ML 1 ML SYRINGE SUBCUT SCH ×3 (05:23→21:21)
[2018-03-01 06:07] LABS: HEPATITIS C VIRUS ANTIBODY 0.1 s/co ratio (0.0-0.9)
[2018-03-01 06:12] LABS: HEMATOCRIT 29.1 % (36.0-47.0); MEAN CORPUSCULAR HGB CONC 35.3 g/dL (32.0-36.0); PLATELET COUNT 190 10^3/uL (150-450); RED CELL DISTRIBUTION WIDTH 31.7 % (11.5-14.0)
[2018-03-01 06:16] LABS: HEMOGLOBIN 10.3 g/dL (12.0-15.5)
[2018-03-01 06:18] LABS: MEAN CORPUSCULAR VOLUME 108 fl (80-97)
[2018-03-01] MEDS: RINGERS SOLUTION,LACTATED 1,000 ML IV PRN (08:00)
[2018-03-01] MEDS: ACETAMINOPHEN 325 MG TABLET PO PRN ×2 (08:02→19:53)
[2018-03-01] MEDS: CYANOCOBALAMIN (VITAMIN B-12) INJ 1000 MCG/1 ML VIAL IM SCH (09:10)
[2018-03-01] MEDS: PANTOPRAZOLE SODIUM 40 MG VIAL IV SCH (09:10)
[2018-03-01] MEDS: THIAMINE HCL 100 MG, FOLIC ACID 1 MG in NORMAL SALINE 250 ML IV SCH (09:11)
[2018-03-01] MEDS: CEFTRIAXONE SODIUM 1,000 MG in DEXTROSE 5%-WATER 50 ML IV SCH (13:02)
--- NOTE | 2018-03-01 16:47 | PDOC PROGRESS REPORT ---
Subjective Progress Note for:: 03/01/18 Subjective:: No adverse events overnight. No new complaints. Vital signs stable. She is asking if she can advance her diet because she been tolerating clear liquids without difficulty. Urine output has been excellent. Reason For Visit: ACUTE PANCREATITIS, LACTIC ACIDOSIS Physical Exam Vital Signs: Temp Pulse Resp BP Pulse Ox 97.4 F 99 18 142/76 H 96 03/01/18 11:36 03/01/18 14:00 03/01/18 11:36 03/01/18 11:36 03/01/18 11:36 Intake & Output 02/28/18 03/01/18 03/02/18 06:59 06:59 06:59 Intake Total 4720 4976.2 1307.2 Balance 4720 4976.2 1307.2 Weight 75 kg 77.9 kg General appearance: PRESENT: no acute distress, cooperative, disheveled, obese Respiratory exam: PRESENT: clear to auscultation alejandra, unlabored. ABSENT: rales , rhonchi, tachypnea, wheezes Cardiovascular exam: PRESENT: RRR, +S1, +S2. ABSENT: systolic murmur Vascular exam: PRESENT: normal capillary refill GI/Abdominal exam: PRESENT: hypoactive bowel sounds, soft. ABSENT: guarding, rebound, tenderness Extremities exam: ABSENT: clubbing, pedal edema Musculoskeletal exam: PRESENT: normal inspection. ABSENT: deformity Neurological exam: PRESENT: alert, awake, oriented to person, oriented to place , oriented to time Psychiatric exam: PRESENT: appropriate affect, normal mood Skin exam: PRESENT: dry, warm Results Laboratory Results: 03/01/18 05:42 02/27/18 06:15 02/28/18 03/01/18 11:37 05:42 WBC 15.0 H RBC 2.70 L Hgb 10.3 L D Hct 29.1 L MCV 108 H D MCH 38.0 H MCHC 35.3 RDW 31.7 H Plt Count 190 Blood Type A POSITIVE Antibody Screen NEGATIVE Impressions: Abdomen/Pelvis CT 02/26/18 16:12 IMPRESSION: Moderate inflammatory changes in the peripancreatic soft tissues and retroperitoneum. Hepatomegaly with diffuse fatty infiltration. Chest X-Ray 02/26/18 16:15 IMPRESSION: NO ACUTE RADIOGRAPHIC FINDING IN THE CHEST. Abdomen Ultrasound 02/26/18 18:35 IMPRESSION: Fatty infiltration of the liver. No acute biliary finding. Assessment & Plan - Diagnosis (1) Acute pancreatitis Qualifiers: Pancreatitis type: alcohol induced Is this a current diagnosis for this admission?: Yes Plan: Stopping her IV fluids and advancing her diet to see how she tolerates. If she tolerates this overnight, will probably discharge her home in the morning. (2) UTI (urinary tract infection) Qualifiers: Indwelling urinary catheter type: unspecified Is this a current diagnosis for this admission?: Yes Plan: We will probably stop Rocephin after 3 days. She is not really been complaining of any dysuria so 3 days is probably sufficient for treatment. (3) Hypomagnesemia Is this a current diagnosis for this admission?: Yes Plan: Resolved. - Time Time Spent with patient: 15-24 minutes
[2018-03-02] MEDS: METOCLOPRAMIDE HCL INJ/PF 10 MG/2 ML SDV IV PRN (03:49)
[2018-03-02] MEDS: HEPARIN SOD (PORCINE) 5,000 UNIT/ML 1 ML SYRINGE SUBCUT SCH (05:45)
[2018-03-02] MEDS: THIAMINE HCL 100 MG, FOLIC ACID 1 MG in NORMAL SALINE 250 ML IV SCH (10:05)
[2018-03-02] MEDS: CYANOCOBALAMIN (VITAMIN B-12) INJ 1000 MCG/1 ML VIAL IM SCH (10:05)
[2018-03-02] MEDS: ACETAMINOPHEN 325 MG TABLET PO PRN (10:51)
[2018-03-02] MEDS ORDERED: PENICILLIN G-K 5 MILLION UNIT VIAL ONE (11:19)
[2018-03-02 13:20] VITALS: BP 131/62
--- NOTE | 2018-03-02 14:49 | PDOC DISCHARGE SUMMARY ---
General - Admit/Disc Date/PCP Admission Date/Primary Care Provider: 02/26/18 22:00 RICHMOND WARD MD Discharge Date: 03/02/18 - Discharge Diagnosis (1) Acute pancreatitis Is this a current diagnosis for this admission?: Yes Summary: Resolved with gut rest, IV fluids, antiemetics. Was able to tolerate advanced diet to a regular diet prior to discharge. (2) UTI (urinary tract infection) Is this a current diagnosis for this admission?: Yes Summary: Resolved. Really think this is more an asymptomatic bacteriuria. She had 3 days of Rocephin. (3) Hypomagnesemia Is this a current diagnosis for this admission?: Yes Summary: She required substantial doses of IV magnesium due to profound hypomagnesemia. It took a couple of days to get her magnesium levels normalized. - Additional Information Discharge Diet: As Tolerated Discharge Activity: Activity As Tolerated Home Medications: No Home Medications 02/27/18 History of Present Illness History of Present Illness: AMBREEN ZENG is a 47 year old female with alcohol dependence comes to the emergency department complaining of persistent nausea and vomiting has been worsening, she has been vomiting every 30 minutes the day of admission. Patient tells me that her symptoms started 10 days ago with nausea, vomiting, watery non-bloody diarrhea and abdominal pain in the epigastric and mid abdominal area, sharp in nature, across the abdomen radiated to the back, up to 10/10 intensity. At the same time her boyfriend who is at the bedside noticed her eyes and skin turning yellow. Patient has been unable to have any solid food or any fluid for the last few days as she is vomiting everything, denies blood in the vomit. Denies fever or chills. Noticed her urine with bad odor and dark, but denies dysuria, hematuria or frequency. As me that she takes aspirin and ibuprofen occasionally, denies taking aspirin. Does not take any prescribed medications at home. Patient drinks on a daily basis, last drink 2 days ago. Laboratory was done in the emergency department with multiple laboratory abnormalities, consistent with acute pancreatitis, deranged LFTs, UTI, leukocytosis with left shift and others detailed below. Right upper ultrasound is fatty infiltrate of her liver and hepatomegaly CT abdomen and pelvis shows pancreatitis Patient was pancultured and antibiotic started after 30 cc/kg IV fluids given. Her blood pressure has remained slightly elevated but the heart rate has been elevated in the 120s. Lactic acid back at 6.7. Hospital Course Hospital Course: She had a metabolic and lactic acidosis that was likely as a result of acute pancreatitis that resolved after several liters of IV fluids. Fortunately she remained hemodynamically stable. She was given plenty of gut rest and antiemetics. Her urine output picked up and eventually we were able to stop IV fluids because she did have any more belly pain. We slowly advanced her diet as she tolerated she was able to tolerate a regular diet before she was discharged. Her labs and examination were reassuring she was discharged home today in good condition. Physical Exam Vital Signs: Temp Pulse Resp BP Pulse Ox 97.9 F 100 16 131/62 H 90 L 03/02/18 13:18 03/02/18 13:18 03/02/18 13:18 03/02/18 13:18 03/02/18 13:18 Intake & Output 03/01/18 03/02/18 03/03/18 06:59 06:59 06:59 Intake Total 4976.2 2231.2 Balance 4976.2 2231.2 Weight 77.9 kg 78.4 kg General appearance: PRESENT: no acute distress, cooperative, disheveled, obese Respiratory exam: PRESENT: clear to auscultation alejandra, unlabored. ABSENT: rales , rhonchi, tachypnea, wheezes Cardiovascular exam: PRESENT: RRR, +S1, +S2. ABSENT: systolic murmur Vascular exam: PRESENT: normal capillary refill GI/Abdominal exam: PRESENT: hypoactive bowel sounds, soft. ABSENT: guarding, rebound, tenderness Extremities exam: ABSENT: clubbing, pedal edema Musculoskeletal exam: PRESENT: normal inspection. ABSENT: deformity Neurological exam: PRESENT: alert, awake, oriented to person, oriented to place , oriented to time Psychiatric exam: PRESENT: appropriate affect, normal mood Skin exam: PRESENT: dry, warm Results Laboratory Results: 03/01/18 05:42 02/27/18 06:15 Impressions: Abdomen/Pelvis CT 02/26/18 16:12 IMPRESSION: Moderate inflammatory changes in the peripancreatic soft tissues and retroperitoneum. Hepatomegaly with diffuse fatty infiltration. Chest X-Ray 02/26/18 16:15 IMPRESSION: NO ACUTE RADIOGRAPHIC FINDING IN THE CHEST. Abdomen Ultrasound 02/26/18 18:35 IMPRESSION: Fatty infiltration of the liver. No acute biliary finding. Qualifiers - * PATIENT BEING DISCHARGED WITH ANY OF THE FOLLOWING DIAGNOSIS: No
== END 2018-03-02 14:25 | disposition home or self-care (01) | DRG 439 ==
LOC: ER 15:14 → EH 22:00 → 3W 02-27 11:22
PROVIDERS: ADMIT Internal Medicine; ATTEND Internal Medicine
PROC: 30233N1 Transfusion of Nonautologous Red Blood Cells into Peripheral Vein, Percutaneous Approach (ICD-10-PCS; principal; 2018-02-28)
DX: K85.20 Alcohol induced acute pancreatitis without necrosis or infection (principal); N39.0 Urinary tract infection, site not specified; E87.2 Acidosis; E87.6 Hypokalemia; E83.42 Hypomagnesemia; F10.20 Alcohol dependence, uncomplicated; Y90.0 Blood alcohol level of less than 20 mg/100 ml; F17.210 Nicotine dependence, cigarettes, uncomplicated; K76.0 Fatty (change of) liver, not elsewhere classified; E87.8 Other disorders of electrolyte and fluid balance, not elsewhere classified; B96.20 Unspecified Escherichia coli [E. coli] as the cause of diseases classified elsewhere; Z87.891 Personal history of nicotine dependence
CPT/HCPCS: 36415; 36430; 71045; 74177; 76705; 80053; 80074; 80307; 81001; 81025; 82140; 82550; 82553; 82607; 82746; 82803; 83605; 83690; 83735; 84100; 84484; 85025; 85027; 85610; 85730; 86850; 86900; 86901; 86920; 87040; 87086; 87088; 87186; 93005; 93010; 96361; 96374; 96375; 99285; J0295; J0696; J1170; J1644; J2270; J2405; J2540; J2765; J3411; J3420; J3475; J3480; J3490; J7030; J7050; J7120; P9016; S0119; S0164

== ENCOUNTER → 2018-03-11 | Outpatient (CLI) | payer SELFPAY ==
--- NOTE | 2018-03-11 16:28 | RADIOLOGY REPORT (SQ) ---
EXAM DESCRIPTION: CT ABD/PELVIS NO ORAL OR IV COMPLETED DATE/TIME: 03/11/2018 4:13 pm REASON FOR STUDY: R18.8 OTHER ASCITES R18.8 OTHER ASCITES COMPARISON: 02/26/2018 TECHNIQUE: CT scan of the abdomen and pelvis performed without intravenous or oral contrast. Images reviewed with lung, soft tissue, and bone windows. Reconstructed coronal and sagittal MPR images revi ewed. All images stored on PACS. All CT scanners at this facility use dose modulation, iterative reconstruction, and/or weight based d osing when appropriate to reduce radiation dose to as low as reasonably achievable (ALARA). [facility]: Dose Right [facility]: CareDose [facility]: Dose Right [facility]: Teradose 4D [facility]: Smart Technologies RADIATION DOSE: CT Rad equipment meets quality standard of care and radiation dose reduction techniq ues were employed. CTDIvol: 11.2 mGy. DLP: 629 mGy-cm.mGy. LIMITATIONS: None. FINDINGS: LOWER CHEST: Mild airspace disease in the right base. A couple of air bronchograms are se en at the diaphragm. NON-CONTRASTED LIVER, SPLEEN, ADRENALS: The liver is diffusely hypoattenuating. Spleen is unremarkab le. No adrenal mass is present. PANCREAS: Pancreatic and peripancreatic inflammatory changes. No definable pancreatic pseudocyst. N o significant interval change. GALLBLADDER: Somewhat distended. No stones. RIGHT KIDNEY AND URETER: No suspicious masses. Assessment limited by lack of IV contrast. No signif icant calcifications. No hydronephrosis or hydroureter. LEFT KIDNEY AND URETER: No suspicious masses. Assessment limited by lack of IV contrast. No signifi cant calcifications. No hydronephrosis or hydroureter. AORTA AND RETROPERITONEUM: No aneurysm. No retroperitoneal masses or adenopathy. BOWEL AND PERITONEAL CAVITY: A small amount of ascites is seen around the liver and in the lower abdo men and pelvis. No bowel masses or inflammatory changes. APPENDIX: Not identified. PELVIS, BLADDER, AND ABDOMINAL WALL:Urinary bladder is somewhat distended. There is free fluid in th e abdomen and pelvis. BONES: No significant findings. OTHER: No other significant finding. IMPRESSION: 1. Fatty infiltration of the liver and ascites. 2. Pancreatitis. 3. Mild airspace disease in the right lower lobe. Atelectasis versus pneumonia. COMMENT: Quality ID # [id number]: Final reports with documentation of one or more dose reduction techniques (e.g., Automated exposure control, adjustment of the mA and/or kV according to patient size, use of iterative reconstruction technique) TECHNICAL DOCUMENTATION: JOB ID: [id number] [employer]- All Rights Reserved Reading location - IP/workstation name: [email or web address]
== END ==
LOC: RAD 16:32
DX: K85.90 Acute pancreatitis without necrosis or infection, unspecified (principal); R18.8 Other ascites
CPT/HCPCS: 74176

== ENCOUNTER 2018-03-12 10:21 | Emergency (ER) | payer SELFPAY ==
--- NOTE | 2018-03-12 12:03 | ER Document Report ---
ED Medical Screen (RME) - General Chief Complaint: Swelling Stated Complaint: SWELLING Time Seen by Provider: 03/12/18 11:59 TRAVEL OUTSIDE OF THE [place].S. IN LAST 30 DAYS: No - HPI Notes: 03/12/18 12:11 47-year-old female with a history of alcohol dependence and pancreatitis comes to the emergency department with complaints of right lower leg swelling, abdominal pain distention with shortness of breath on ambulation which has been occurring for the last week but shortness of breath occurred approximately 3 days ago. Patient was seen at the [facility] yesterday in which a CT abdomen pelvis was done, the report shows that patient does have active pancreatitis along with atelectasis versus pneumonia. Patient was seen again today at the [facility] and they referred her to the emergency room due to lower leg swelling and abdominal distention. Patient was admitted to [facility] on February 26, she was admitted for pancreatitis and she was discharged to 03/02/18. Denies fevers, chills, night chest pain, palpitations, shortness of breath, dyspnea, nausea, vomiting, diarrhea, abdominal pain, hematuria,blurred vision, double vision, loss of vision, speech changes, LH, dizziness, syncope, headaches, wheezing, ST, URI, neck pain, weakness, bowel or bladder dysfunction, saddle anesthesia, numbness or tingling in bilateral upper or lower extremities equally, muscle paralysis, weakness in bilateral upper or lower extremities equally or rash. Denies IV drug use. Abdominal distention, S1-S2 regular, lungs CTA, right lower leg and calf with swelling no erythema or warmth to touch. I have greeted and performed a rapid initial assessment of this patient. A comprehensive ED assessment and evaluation of the patient, analysis of test results and completion of medical decision making process will be conducted by an additional ED providers. - Related Data Allergies/Adverse Reactions: No Known Allergies Allergy (Verified 03/12/18 10:33) Past Medical History Renal/ Medical History: Denies: Hx Peritoneal Dialysis - Immunizations History of Influenza Vaccine for 05/2017 - 10/2017 Season: Yes Physical Exam - Vital signs Vitals: Temp Pulse Resp BP Pulse Ox 97.8 F 80 20 111/58 L 98 03/12/18 10:52 03/12/18 10:52 03/12/18 10:52 03/12/18 10:52 03/12/18 10:52 Course - Vital Signs Vital signs: Temp Pulse Resp BP Pulse Ox 97.8 F 80 20 111/58 L 98 03/12/18 10:52 03/12/18 10:52 03/12/18 10:52 03/12/18 10:52 03/12/18 10:52 - Laboratory Result Diagrams: 03/12/18 13:17 03/12/18 13:17 Laboratory results interpreted by me: 03/12/18 03/12/18 03/12/18 13:17 13:17 13:17 WBC 27.7 H RBC 3.16 L Hgb 11.5 L Hct 34.1 L MCV 108 H MCH 36.3 H RDW 27.6 H Seg Neuts % (Manual) 91 H Band Neutrophils % 1 L Lymphocytes % (Manual) 7 L Monocytes % (Manual) 1 L Abs Neuts (Manual) 25.5 H PT APTT VBG pH 7.44 H Sodium 135.6 L Potassium 3.0 L* Chloride 97 L Carbon Dioxide 21 L Glucose 118 H Calcium 7.3 L Magnesium 1.0 L* Total Bilirubin 21.9 H Direct Bilirubin 19.8 H AST 195 H Alkaline Phosphatase 197 H NT-Pro-B Natriuret Pep Albumin 2.9 L 03/12/18 03/12/18 13:17 13:17 WBC RBC Hgb Hct MCV MCH RDW Seg Neuts % (Manual) Band Neutrophils % Lymphocytes % (Manual) Monocytes % (Manual) Abs Neuts (Manual) PT 21.9 H APTT 50.1 H VBG pH Sodium Potassium Chloride Carbon Dioxide Glucose Calcium Magnesium Total Bilirubin Direct Bilirubin AST Alkaline Phosphatase NT-Pro-B Natriuret Pep 536 H Albumin Doctor's Discharge - Discharge Referrals: [facility] [NO LOCAL MD] - Follow up as needed
--- NOTE | 2018-03-12 13:12 | RADIOLOGY REPORT (SQ) ---
EXAM DESCRIPTION: CHEST SINGLE VIEW COMPLETED DATE/TIME: 03/12/2018 12:57 pm REASON FOR STUDY: sob COMPARISON: AP chest 02/26/2018 EXAM PARAMETERS: NUMBER OF VIEWS: One view. TECHNIQUE: Single frontal radiographic view of the chest acquired. RADIATION DOSE: NA LIMITATIONS: None. FINDINGS: LUNGS AND PLEURA: No opacities, masses or pneumothorax. No pleural effusion. MEDIASTINUM AND HILAR STRUCTURES: No masses. Contour normal. HEART AND VASCULAR STRUCTURES: Heart normal in size. Normal vasculature. BONES: No acute findings. HARDWARE: None in the chest. OTHER: No other significant finding. IMPRESSION: NO ACUTE RADIOGRAPHIC FINDING IN THE CHEST. TECHNICAL DOCUMENTATION: JOB ID: [id number] [employer]- All Rights Reserved Reading location - IP/workstation name: [email or web address]
[2018-03-12 13:35] LABS: VENOUS BLOOD HCO3 26.2 mmol/L (20-32); VENOUS BLOOD PCO2 39.9 mmHg (35-63); VENOUS BLOOD PH 7.44 (7.30-7.42)
[2018-03-12 13:37] LABS: HEMATOCRIT 34.1 % (36.0-47.0); HEMOGLOBIN 11.5 g/dL (12.0-15.5); MEAN CORPUSCULAR HEMOGLOBIN 36.3 pg (27.0-33.4); MEAN CORPUSCULAR HGB CONC 33.7 g/dL (32.0-36.0); MEAN CORPUSCULAR VOLUME 108 fl (80-97); PLATELET COUNT 217 10^3/uL (150-450); RED BLOOD COUNT 3.16 10^6/uL (3.72-5.28); RED CELL DISTRIBUTION WIDTH 27.6 % (11.5-14.0); WHITE BLOOD COUNT 27.7 10^3/uL (4.0-10.5)
[2018-03-12 13:46] LABS: INTERNATIONAL RATION (INR) 1.81; PROTHROMBIN TIME 21.9 SEC (11.4-15.4)
[2018-03-12 13:48] LABS: PARTIAL THROMBOPLASTIN TIME 50.1 SEC (23.5-35.8)
[2018-03-12 14:01] LABS: ALANINE AMINOTRANSFERASE 26 U/L (9-52); ALBUMIN 2.9 g/dL (3.5-5.0); ALKALINE PHOSPHATASE 197 U/L (38-126); ANION GAP 18 (5-19); ASPARTATE AMINO TRANSFERASE 195 U/L (14-36); BILIRUBIN,DIRECT 19.8 mg/dL (0.0-0.4); BILIRUBIN,TOTAL 21.9 mg/dL (0.2-1.3); BLOOD UREA NITROGEN 7 mg/dL (7-20); CALCIUM 7.3 mg/dL (8.4-10.2); CARBON DIOXIDE 21 mmol/L (22-30); CHLORIDE 97 mmol/L (98-107); GLUCOSE 118 mg/dL (75-110); LIPASE 56.3 U/L (23-300); SODIUM 135.6 mmol/L (137-145); TOTAL PROTEIN 7.4 g/dL (6.3-8.2)
[2018-03-12 14:04] LABS: ALCOHOL < 10 mg/dL (NONE DETECTED)
[2018-03-12 14:09] LABS: PHOSPHORUS 3.2 mg/dL (2.5-4.5)
[2018-03-12 14:10] LABS: NT PRO BNP 536 pg/mL (<125)
[2018-03-12 14:11] LABS: ABSOLUTE LYMPHOCYTES# (MANUAL) 1.9 10^3/uL (0.5-4.7); ABSOLUTE MONOCYTES # (MANUAL) 0.3 10^3/uL (0.1-1.4); ABSOLUTE NEUTROPHILS# (MANUAL) 25.5 10^3/uL (1.7-8.2); BAND NEUTROPHILS % (MANUAL) 1 % (3-5); BASOPHILS % (MANUAL) 0 % (0-2); EOSINOPHILS % (MANUAL) 0 % (0-6); LYMPHOCYTES % (MANUAL) 7 % (13-45); MONOCYTES % (MANUAL) 1 % (3-13); SEGMENTED NEUTROPHILS % (MAN) 91 % (42-78); TOTAL CELLS COUNTED 100
[2018-03-12 14:12] LABS: ANISOCYTOSIS 3+; HYPOCHROMASIA SLIGHT; OVALOCYTES SLIGHT; PLATELET COMMENT ADEQUATE; POIKILOCYTOSIS SLIGHT; POLYCHROMASIA SLIGHT; TARGET CELLS SLIGHT; TOXIC GRANULATION 1+; TOXIC VACUOLATION PRESENT
[2018-03-12 14:13] LABS: TROPONIN I < 0.012 ng/mL
[2018-03-12 15:41] LABS: APPEARANCE,URINE CLOUDY; BILIRUBIN,URINE MODERATE (NEGATIVE); GLUCOSE, URINE 50 mg/dL (NEGATIVE); KETONES,URINE NEGATIVE (NEGATIVE); LEUKOCYTE ESTERASE,URINE NEGATIVE (NEGATIVE); NITRITE,URINE NEGATIVE (NEGATIVE); PROTEIN,URINE 30 mg/dL (NEGATIVE); URINE SPECIFIC GRAVITY 1.018
[2018-03-12 15:42] LABS: COLOR,URINE BROWN
[2018-03-12] MEDS ORDERED: POTASSIUM CHLORIDE 20 MEQ/15 ML UDCUP PO ONE (16:39)
--- NOTE | 2018-03-12 17:01 | ER Document Report ---
ED General - General Mode of Arrival: Ambulatory Information source: Patient TRAVEL OUTSIDE OF THE U.S. IN LAST 30 DAYS: No <MENDY CHILDERS - Last Filed: 03/12/18 21:47> <DOMO TRENT - Last Filed: 03/13/18 13:25> - General Chief Complaint: Swelling Stated Complaint: SWELLING Time Seen by Provider: 03/12/18 11:59 Notes: Patient is a 47-year-old female with a history of alcohol dependence and pancreatitis presents to the emergency department complaining of bilateral lower extremity swelling and abdominal distention onset last week. Patient was seen at the [facility] yesterday in which a CT of the abdomen and pelvis was done. The report showed that patient does have active pancreatitis along with atelectasis versus pneumonia. Patient was seen again today at the [facility] and they referred her to the emergency room due to lower leg swelling and abdominal distention. Patient also complains of a 25 pound weight gain. Patient denies fevers, chills, night chest pain, shortness of breath, dyspnea, nausea, vomiting, diarrhea, abdominal pain or hematuria. She further denies IV drug use or a history of hepatitis, liver problems or gall bladder problems. Patient was admitted to [facility] on February 26, she was admitted for pancreatitis and she was discharged to 03/02/18. (MENDY CHILDERS) - Related Data Allergies/Adverse Reactions: No Known Allergies Allergy (Verified 03/12/18 10:33) Past Medical History - General Information source: Patient - Social History Smoking Status: Former Smoker Chew tobacco use (# tins/day): No Frequency of alcohol use: None Drug Abuse: None Family History: Reviewed & Not Pertinent Patient has suicidal ideation: No Patient has homicidal ideation: No <MENDY CHILDERS - Last Filed: 03/12/18 21:47> Review of Systems - Review of Systems Constitutional: No symptoms reported EENT: No symptoms reported Cardiovascular: No symptoms reported Respiratory: No symptoms reported Gastrointestinal: See HPI, Abdomen distended Genitourinary: No symptoms reported Female Genitourinary: No symptoms reported Musculoskeletal: See HPI, Leg swelling Skin: No symptoms reported Hematologic/Lymphatic: No symptoms reported Neurological/Psychological: No symptoms reported -: Yes All other systems reviewed and negative <MENDY CHILDERS - Last Filed: 03/12/18 21:47> Physical Exam <LISETH,DENISSEBLAYNE - Last Filed: 03/12/18 21:47> <TWANDOMO - Last Filed: 03/13/18 13:25> - Vital signs Vitals: Temp Pulse Resp BP Pulse Ox 97.8 F 80 20 111/58 L 98 03/12/18 10:52 03/12/18 10:52 03/12/18 10:52 03/12/18 10:52 03/12/18 10:52 - Notes Notes: GENERAL: Alert, interacts well. No acute distress. HEAD: Normocephalic, atraumatic. EYES: Pupils equal, round, and reactive to light. Extraocular movements intact. Scleral icterus. ENT: Oral mucosa moist, tongue midline. NECK: Full range of motion. Supple. Trachea midline. LUNGS: Clear to auscultation bilaterally, no wheezes, rales, or rhonchi. No respiratory distress. HEART: Regular rate and rhythm. No murmurs, gallops, or rubs. ABDOMEN: Soft, minor diffuse tenderness to palpation. Distended. Reducible umbilical hernia. Bowel sounds present in all 4 quadrants. EXTREMITIES: Moves all 4 extremities spontaneously. 3+ pitting edema bilaterally , radial and dorsalis pedis pulses 2/4 bilaterally. No cyanosis. NEUROLOGICAL: Alert and oriented x3. Normal speech. PSYCH: Normal affect, normal mood. SKIN: Warm, dry, normal turgor. Jaundiced. (MENDY CHILDERS) Course - Laboratory Result Diagrams: 03/12/18 13:17 03/12/18 13:17 <LISETHDENISSEBLAYNE - Last Filed: 03/12/18 21:47> - Laboratory Result Diagrams: 03/12/18 13:17 03/12/18 13:17 - EKG Interpretation by Sc EKG shows normal: Sinus rhythm Rate: Normal Rhythm: NSR [place]/QRS: Left axis deviation <TWANDOMO - Last Filed: 03/13/18 13:25> - Re-evaluation Re-evalutation: 03/12/18 19:[address] Lorenzo at [facility] who believes the patient should be preserved at a tertiary care center due to concerns of liver failure. (MENDY CHILDERS) 03/12/18 19:57 Dr. Rhodes at [facility] will accept patient. (DOMO TRENT) - Vital Signs Vital signs: Temp Pulse Resp BP Pulse Ox 97.9 F 80 21 H 112/69 98 03/12/18 21:43 03/12/18 10:52 03/13/18 13:03 03/13/18 13:03 03/13/18 13:03 - Laboratory Laboratory results interpreted by me: 03/12/18 03/12/18 03/12/18 13:17 13:17 13:17 WBC 27.7 H RBC 3.16 L Hgb 11.5 L Hct 34.1 L MCV 108 H MCH 36.3 H RDW 27.6 H Seg Neuts % (Manual) 91 H Band Neutrophils % 1 L Lymphocytes % (Manual) 7 L Monocytes % (Manual) 1 L Abs Neuts (Manual) 25.5 H PT APTT VBG pH 7.44 H Sodium 135.6 L Potassium 3.0 L* Chloride 97 L Carbon Dioxide 21 L Glucose 118 H Calcium 7.3 L Magnesium 1.0 L* Total Bilirubin 21.9 H Direct Bilirubin 19.8 H AST 195 H Alkaline Phosphatase 197 H NT-Pro-B Natriuret Pep Albumin 2.9 L Urine Protein Urine Glucose (UA) Urine Blood Urine Bilirubin Urine Urobilinogen 03/12/18 03/12/18 03/12/18 13:17 13:17 15:13 WBC RBC Hgb Hct MCV MCH RDW Seg Neuts % (Manual) Band Neutrophils % Lymphocytes % (Manual) Monocytes % (Manual) Abs Neuts (Manual) PT 21.9 H APTT 50.1 H VBG pH Sodium Potassium Chloride Carbon Dioxide Glucose Calcium Magnesium Total Bilirubin Direct Bilirubin AST Alkaline Phosphatase NT-Pro-B Natriuret Pep 536 H Albumin Urine Protein 30 H Urine Glucose (UA) 50 H Urine Blood SMALL H Urine Bilirubin MODERATE H Urine Urobilinogen 4.0 H Discharge <MENDY CHILDERS - Last Filed: 03/12/18 21:47> - Discharge Admitting Provider: Carmelo Unit Admitted: Medical Floor <DOMO TRENT - Last Filed: 03/13/18 13:25> - Discharge Clinical Impression: Hyperbilirubinemia Liver failure Qualifiers: Liver failure chronicity: unspecified chronicity Hepatic coma status: without hepatic coma Qualified Code(s): K72.90 - Hepatic failure, unspecified without coma Condition: Fair Disposition: [facility] Referrals: [facility] [NO LOCAL MD] - Follow up as needed Scribe Attestation: 03/13/18 13:25 I personally performed the services described in the documentation, reviewed and edited the documentation which was dictated to the scribe in my presence, and it accurately records my words and actions. (DOMO TRENT) Scribe Documentation - Scribe Written by [place]:: Argenis Dailey, 03/12/2018 17:28 acting as scribe for :: Twan <MENDY CHILDERS - Last Filed: 03/12/18 21:47>
[2018-03-12] MEDS ORDERED: CEFTRIAXONE 1 GM/D5W RTU 50 ML IV ONE (17:02)
[2018-03-12] MEDS: MAGNESIUM SULFATE/D5W 1 GM/100 ML RTUPB IV SCH ×2 (17:11→18:23)
--- NOTE | 2018-03-12 17:16 | XCELERA REPORT ---
[address] [address] Lower Extremity Venous Evaluation Procedure: Color flow and duplex imaging of the veins of the right lower extremity as well as the left Common Femoral vein. Right Sided Venous Evaluation Normal vessel filling wall to wall, compression and augmentation as well as Colour flow down to the infrageniculate veins. Left Sided Venous Evaluation Spontaneous and phasic flow is present in the left common femoral vein. Interpretation Summary No duplex evidence of DVT or obstruction in the right lower extremity nor in the left Common Femoral vein. Name: AMBREEN ZENG Age: 47 yrs Gender: Female : 1970 Patient Status: Preadmit Patient Location: ER Study Date: 03/12/2018 02:13 PM Reason For Study: Right leg swelling x 1 week Ordering Physician: RILEY SANCHES^[employer] HELPER-C Performed By: Isabelle Vanessa : RILEY SANCHES^[employer] HELPER-C > Alex Mejia
[2018-03-12] MEDS ORDERED: CEFTRIAXONE INJ 1000 MG VIAL IV ONE (18:00)
--- NOTE | 2018-03-12 23:32 | EKG REPORT ---
SEVERITY:- OTHERWISE NORMAL ECG - SINUS RHYTHM LEFT AXIS DEVIATION : Confirmed by: Jessica Hinson MD 12-Mar-2018 23:31:18
[2018-03-13] MEDS ORDERED: IBUPROFEN 400 MG TABLET PO ONE (09:44)
[2018-03-13 21:01] LABS: ALANINE AMINOTRANSFERASE 21 U/L (9-52); ALBUMIN 2.3 g/dL (3.5-5.0); ALKALINE PHOSPHATASE 153 U/L (38-126); ANION GAP 14 (5-19); ASPARTATE AMINO TRANSFERASE 147 U/L (14-36); BILIRUBIN,DIRECT 17.3 mg/dL (0.0-0.4); BLOOD UREA NITROGEN 9 mg/dL (7-20); CARBON DIOXIDE 20 mmol/L (22-30); CHLORIDE 100 mmol/L (98-107); GLUCOSE 200 mg/dL (75-110); TOTAL PROTEIN 6.1 g/dL (6.3-8.2)
[2018-03-13 21:11] LABS: CALCIUM 6.8 mg/dL (8.4-10.2); POTASSIUM 2.8 mmol/L (3.6-5.0)
[2018-03-13] MEDS ORDERED: POTASSIUM CHLORIDE 20 MEQ/15 ML UDCUP PO ONE (21:23)
[2018-03-13] MEDS: MAGNESIUM SULFATE/D5W 1 GM/100 ML RTUPB IV SCH ×2 (21:44→22:22)
[2018-03-13] MEDS ORDERED: TICAGRELOR 90 MG TABLET PO SCH (22:00)
[2018-03-13] MEDS: POTASSI CL 20 MEQ/50 ML RIDER 20 MEQ/50 ML RTUPB IV SCH (22:51)
[2018-03-14] MEDS: POTASSI CL 20 MEQ/50 ML RIDER 20 MEQ/50 ML RTUPB IV SCH (00:57)
[2018-03-14 07:42] LABS: HEPATITIS A AB IGM Negative (Negative); HEPATITIS B CORE AB IGM Negative (Negative); HEPATITS B SURFACE ANTIGEN Negative (Negative)
[2018-03-14] MEDS ORDERED: CEFTRIAXONE 1 GM/D5W RTU 1 GM/50 ML RTUPB IV ONE (10:55)
[2018-03-14] MEDS ORDERED: CEFTRIAXONE INJ 1000 MG VIAL ONE (11:07)
[2018-03-14 11:38] LABS: ALANINE AMINOTRANSFERASE 24 U/L (9-52); ALBUMIN 2.4 g/dL (3.5-5.0); ALKALINE PHOSPHATASE 165 U/L (38-126); ANION GAP 13 (5-19); ASPARTATE AMINO TRANSFERASE 163 U/L (14-36); BILIRUBIN,DIRECT 17.6 mg/dL (0.0-0.4); BILIRUBIN,TOTAL 19.4 mg/dL (0.2-1.3); BLOOD UREA NITROGEN 7 mg/dL (7-20); CALCIUM 7.1 mg/dL (8.4-10.2); CARBON DIOXIDE 21 mmol/L (22-30); CHLORIDE 103 mmol/L (98-107); GLUCOSE 127 mg/dL (75-110); LIPASE 64.7 U/L (23-300); POTASSIUM 3.4 mmol/L (3.6-5.0); SODIUM 137.3 mmol/L (137-145); TOTAL PROTEIN 6.3 g/dL (6.3-8.2)
[2018-03-14 11:46] LABS: HEMATOCRIT 30.9 % (36.0-47.0); HEMOGLOBIN 10.2 g/dL (12.0-15.5); MEAN CORPUSCULAR HEMOGLOBIN 35.5 pg (27.0-33.4); MEAN CORPUSCULAR VOLUME 107 fl (80-97); PLATELET COUNT 172 10^3/uL (150-450); RED BLOOD COUNT 2.88 10^6/uL (3.72-5.28); RED CELL DISTRIBUTION WIDTH 27.1 % (11.5-14.0)
[2018-03-14 12:00] LABS: ABSOLUTE LYMPHOCYTES# (MANUAL) 1.1 10^3/uL (0.5-4.7); ABSOLUTE MONOCYTES # (MANUAL) 1.5 10^3/uL (0.1-1.4); ABSOLUTE NEUTROPHILS# (MANUAL) 17.9 10^3/uL (1.7-8.2); BASOPHILS % (MANUAL) 0 % (0-2); EOSINOPHILS % (MANUAL) 3 % (0-6); LYMPHOCYTES % (MANUAL) 5 % (13-45); MONOCYTES % (MANUAL) 7 % (3-13); SEGMENTED NEUTROPHILS % (MAN) 85 % (42-78); TOTAL CELLS COUNTED 100
[2018-03-14 12:01] LABS: ANISOCYTOSIS 3+; PLATELET COMMENT ADEQUATE; POIKILOCYTOSIS SLIGHT; TARGET CELLS SLIGHT; TOXIC GRANULATION 1+
[2018-03-14] MEDS ORDERED: IBUPROFEN 400 MG TABLET PO ONE (14:29)
--- NOTE | 2018-03-14 19:47 | ER Document Report ---
Doctor's Note Notes: 03/14/18 19:33 Rounds: I assumed care of this patient early this morning when I began my shift. I reviewed her record at that time. I have reordered lab work which shows some slight improvements in her liver tests and white cell count. I found that the patient has been here since night and has a planned transfer to [facility], but no bed assignment yet and no definite timeframe for the patient to be transferred. I called and spoke with [facility] transfer and they said it could be another 24-48 hours before the patient could be transferred there. Patient's labs were re-evaluated. Her white cell count was 27,000 upon her admission and has dropped down to about 21,000 today. Her bilirubin is about the same as it was the other day, about 19. Her LFTs are only minimally elevated. Potassium was 2.8 initially but now 3.4. Calcium has improved. I spoke with the transfer center at [facility] who said that they do have beds available. They were able to accept the patient there and I have made the patient aware of this plan and she is fine with going there. Patient received a gram of Rocephin the night that she was admitted, but nothing yesterday, but still should be okay because of the long life of Rocephin. I gave her another gram of Rocephin today. Patient transport is on the way at this time and patient is very stable with normal vital signs. She looks very well. Is able to get up and walk to the bathroom without anyone's help.
[2018-03-14 20:05] VITALS: BP 117/65
[2018-03-15 06:20] LABS: HEPATITIS C VIRUS ANTIBODY <0.1 s/co ratio (0.0-0.9)
== END 2018-03-14 20:00 | disposition short-term general hospital (02) ==
LOC: ER 10:21
DX: K72.90 Hepatic failure, unspecified without coma (principal); E80.6 Other disorders of bilirubin metabolism; M79.89 Other specified soft tissue disorders; R10.9 Unspecified abdominal pain; R06.02 Shortness of breath; Z87.891 Personal history of nicotine dependence
CPT/HCPCS: 93005; 96376; 99285; 96365; 96366; 96367; 36415; 87040; 87086; 80307; 82140; 83690; 83735; 84100; 85025; 85610; 85730; 80053; 81001; 84484; 82803; 83605; 80074; 83880; 93971 ×2; 71045; 93010; J3490 ×2; J3475 ×2; J0696 ×2; J3480 ×2

== ENCOUNTER 2018-06-11 20:33 | Inpatient (IN) | payer SELFPAY ==
[2018-06-11] MEDS ORDERED: HYDROMORPHONE HCL INJ/PF 2 MG/ML AMPULE ONE (21:09)
[2018-06-11] MEDS ORDERED: HYDROMORPHONE HCL INJ/PF 2 MG/ML AMPULE IV ONE (21:10)
[2018-06-11] MEDS ORDERED: NORMAL SALINE 1000 ML 1,000 ML IV ONE (21:13)
--- NOTE | 2018-06-11 21:16 | ER Document Report ---
ED General - General Chief Complaint: Abdominal Pain Stated Complaint: ABDOMINAL PAIN Time Seen by Provider: 06/11/18 21:06 Notes: Patient is a 47-year old female with a past medical history of steatohepatitis, chronic bilirubin elevations, who presents with 6 hours of severe pain to her umbilical hernia. She describes it as a severe, throbbing, constant pain that started abruptly at approximately 1400 and has been ongoing since that time. She states the pain is so severe it has caused her to double over in pain and vomit. Nothing improves the pain. She states the hernia has never caused pain like this in the past and that it is normally easily reduced with gentle pressure. She reports that she is unable to reduce it with gentle pressure currently. She has not seen her general doctor regarding today's concerns. She denies fever or constitutional symptoms. TRAVEL OUTSIDE OF THE [place] IN LAST 30 DAYS: No - Related Data Allergies/Adverse Reactions: No Known Allergies Allergy (Verified 06/11/18 23:14) Past Medical History - General Information source: Patient - Social History Smoking Status: Current Every Day Smoker Frequency of alcohol use: Occasional Drug Abuse: None Lives with: Spouse/Significant other Family History: Reviewed & Not Pertinent Renal/ Medical History: Denies: Hx Peritoneal Dialysis Review of Systems - Review of Systems Notes: Constitutional: Negative for fever. HENT: Negative for sore throat. Eyes: Negative for visual changes. Cardiovascular: Negative for chest pain. Respiratory: Negative for shortness of breath. Gastrointestinal: Positive for umbilical hernia pain and vomiting Genitourinary: Negative for dysuria. Musculoskeletal: Negative for back pain. Skin: Negative for rash. Neurological: Negative for headaches, weakness or numbness. 10 point ROS negative except as marked above and in HPI. Physical Exam - Vital signs Vitals: Temp Pulse Resp BP Pulse Ox 98.3 F 110 H 18 150/88 H 99 06/11/18 20:43 06/11/18 20:43 06/11/18 20:43 06/11/18 20:43 06/11/18 20:43 Interpretation: Tachycardic Notes: PHYSICAL EXAMINATION: GENERAL: Appears extremely unwell, rocking in pain HEAD: Atraumatic, normocephalic. EYES: Pupils equal round and reactive to light, extraocular movements intact, sclera anicteric, conjunctiva are normal. ENT: nares patent, oropharynx clear without exudates. Moist mucous membranes. NECK: Normal range of motion, supple without lymphadenopathy LUNGS: Breath sounds clear to auscultation bilaterally and equal. No wheezes rales or rhonchi. HEART: Regular tachycardia without murmurs ABDOMEN: Soft, diffuse mild generalized tenderness. There is a swollen, darkened umbilical hernia that is firm to palpation, not reducible with gentle palpation or with firm palpation. EXTREMITIES: Normal range of motion, no pitting or edema. No cyanosis. NEUROLOGICAL: No focal neurological deficits. Moves all extremities spontaneously and on command. PSYCH: Moderately anxious SKIN: Warm, Dry, normal turgor, no rashes or lesions noted. Course - Re-evaluation Re-evalutation: 06/11/18 21:15 Patient presents in severe pain, has an apparent incarcerated, strangulated umbilical hernia unable to be reduced with bedside attempt using hydromorphone to assist. The hernia itself is blackish in color, concerned that the bowel is already becoming necrotic. And immediately exited the room after examining the patient and attempting a manual reduction, contacted the surgeon information assurance Dr. Manzanares and asked him to immediately come to the bedside as I believe the vision will require an emergent operation. Labs are pending. Patient does report no chronic medical problems, was seen in March for concerns of liver failure which she states was diagnosed as being secondary to fatty liver. She has mild icterus on exam which she states is baseline. Repeat labs are pending. Patient is n.p.o. Will continue to reassess. 06/11/18 21:30 Dr. Manzanares will take the patient emergently to the operating room. 06/11/18 21:50 Dr. Manzanares has requested that a CAT scan with IV and oral contrast be completed. This has been ordered at his request. Patient's pain is better controlled at this point. Will continue to monitor closely. 06/12/18 01:[address] scan has returned and does confirm my original clinical suspicion that there is a incarcerated, strangulated hernia. Dr. Manzanares has been contacted with this report. I again leave that the patient needs to go emergently to the operating room as I did at my initial plan contacted [id number]. - Vital Signs Vital signs: Temp Pulse Resp BP Pulse Ox 98.3 F 110 H 16 149/75 H 94 06/11/18 20:43 06/11/18 20:43 06/12/18 01:01 06/12/18 01:01 06/12/18 01:01 - Laboratory Result Diagrams: 06/11/18 21:03 06/11/18 21:03 Laboratory results interpreted by me: 06/11/18 06/11/18 06/11/18 21:03 21:03 21:03 RBC 2.80 L Hgb 10.2 L Hct 29.4 L MCV 105 H MCH 36.4 H RDW 18.0 H Plt Count 144 L Seg Neutrophils % 78.9 H Sodium 145.1 H Carbon Dioxide 17 L Anion Gap 21 H BUN 5 L Glucose 122 H Magnesium 1.2 L* Total Bilirubin 6.8 H Direct Bilirubin 4.7 H AST 281 H Alkaline Phosphatase 267 H - Diagnostic Test Radiology reviewed: Reports reviewed Discharge - Discharge Clinical Impression: Incarcerated umbilical hernia, Hernia with strangulation Nausea and vomiting Qualifiers: Vomiting type: unspecified Vomiting Intractability: non-intractable Qualified Code(s): R11.2 - Nausea with vomiting, unspecified Condition: Fair Disposition: ADMITTED INPATIENT Admitting Provider: Surgicalist
[2018-06-11 21:24] LABS: ABSOLUTE LYMPHOCYTES (AUTO) 1.1 10^3/uL (0.5-4.7); ABSOLUTE MONOCYTES (AUTO) 0.3 10^3/uL (0.1-1.4); ABSOLUTE NEUT (AUTO) 5.3 10^3/uL (1.7-8.2); BASOPHILS % (AUTO) 0.6 % (0-2); EOSINOPHILS % (AUTO) 0.2 % (0-6); HEMATOCRIT 29.4 % (36.0-47.0); HEMOGLOBIN 10.2 g/dL (12.0-15.5); LYMPHOCYTES % (AUTO) 15.8 % (13-45); MEAN CORPUSCULAR HEMOGLOBIN 36.4 pg (27.0-33.4); MEAN CORPUSCULAR HGB CONC 34.7 g/dL (32.0-36.0); MEAN CORPUSCULAR VOLUME 105 fl (80-97); MONOCYTES % (AUTO) 4.5 % (3-13); PLATELET COUNT 144 10^3/uL (150-450); SEGMENTED NEUTROPHILS % (AUTO) 78.9 % (42-78); TOTAL CELLS COUNTED % (AUTO) 100 %; WHITE BLOOD COUNT 6.7 10^3/uL (4.0-10.5)
[2018-06-11] MEDS ORDERED: NORMAL SALINE 1000 ML 1,000 ML IV PRN (21:28)
[2018-06-11 21:30] LABS: ALANINE AMINOTRANSFERASE 40 U/L (9-52); ALBUMIN 3.7 g/dL (3.5-5.0); ALKALINE PHOSPHATASE 267 U/L (38-126); ASPARTATE AMINO TRANSFERASE 281 U/L (14-36); BILIRUBIN,DIRECT 4.7 mg/dL (0.0-0.4); BILIRUBIN,TOTAL 6.8 mg/dL (0.2-1.3); BLOOD UREA NITROGEN 5 mg/dL (7-20); CALCIUM 9.3 mg/dL (8.4-10.2); GLUCOSE 122 mg/dL (75-110); LIPASE 23.2 U/L (23-300); POTASSIUM 3.7 mmol/L (3.6-5.0); TOTAL PROTEIN 8.2 g/dL (6.3-8.2)
[2018-06-11 21:35] LABS: CARBON DIOXIDE 17 mmol/L (22-30); CHLORIDE 107 mmol/L (98-107); SODIUM 145.1 mmol/L (137-145)
[2018-06-11 21:36] LABS: ANION GAP 21 (5-19)
[2018-06-11] MEDS: PIPERACILLIN/TAZOBACTAM 3.375 GM VIAL IV ONE (21:41)
--- NOTE | 2018-06-11 22:30 | PDOC H&P ---
History of Present Illness Admission Date/PCP: 06/11/18 21:34 Patient complains of: abdominal pains History of Present Illness: AMBREEN ZENG is a 47 year old female with history of chronic alcoholism and episode of pancreatitis 2 months ago has been c/o of mild umbilical pains past few weeks then got worse today associated with nausea and vomiting. She used to drink daily until her hospitalization for pancreatitis 2 months ago. At that time has evidence of fatty liver with marked elevation of LFTs. Today her lipase is normal aw well as WBC. Her Lfts are slightly elevated. She feels better now after the dilaudid. Past Medical History GI Medical History: Reports: Other - fatty liver with elevated LFTs diagnosed 2 months ago. Also had pancreatiti Psychiatric Medical History: Reports: Alcohol Dependency, Tobacco Dependency Past Surgical History Past Surgical History: Reports: Other - section Social History Smoking Status: Current Every Day Smoker - 1/3 pack a day Frequency of Alcohol Use: Heavy - Now drinks about 4 drinks a week. Used to drink daily until 2 months ago Hx Recreational Drug Use: No Hx Prescription Drug Abuse: No Family History Family History: Reviewed & Not Pertinent Parental Family History Reviewed: Yes Children Family History Reviewed: No Sibling(s) Family History Reviewed.: No Medication/Allergy Home Medications: No Home Medications 03/12/18 Allergies/Adverse Reactions: No Known Allergies Allergy (Verified 03/12/18 10:33) Review of Systems Constitutional: PRESENT: other - no fever/chills Eyes: PRESENT: other - no visual/hearing changes Cardiovascular: PRESENT: other - no chest pains Respiratory: PRESENT: cough Gastrointestinal: PRESENT: abdominal pain, nausea, vomiting Genitourinary: PRESENT: other - no dysuria Neurological: PRESENT: other - no seizures Physical Exam Vital Signs: Temp Pulse Resp BP Pulse Ox 98.3 F 110 H 18 150/88 H 99 06/11/18 20:43 06/11/18 20:43 06/11/18 20:43 06/11/18 20:43 06/11/18 20:43 General appearance: PRESENT: mild distress Head exam: PRESENT: atraumatic Eye exam: PRESENT: scleral icterus Mouth exam: PRESENT: moist Neck exam: PRESENT: full ROM Respiratory exam: PRESENT: clear to auscultation alejandra Cardiovascular exam: PRESENT: RRR Pulses: PRESENT: normal radial pulses Vascular exam: PRESENT: normal capillary refill GI/Abdominal exam: PRESENT: soft, tenderness - over a prutruding firm umbilicus Rest of abdomen is soft and nontender Rectal exam: PRESENT: deferred Extremities exam: PRESENT: full ROM Musculoskeletal exam: PRESENT: ambulatory Neurological exam: PRESENT: alert, oriented to person, oriented to place, oriented to time, oriented to situation Psychiatric exam: PRESENT: appropriate affect Skin exam: PRESENT: normal color, warm Assessment & Plan - Diagnosis (1) Incarcerated umbilical hernia Is this a current diagnosis for this admission?: Yes (2) Nausea and vomiting Qualifiers: Vomiting type: unspecified Vomiting Intractability: non-intractable Qualified Code(s): R11.2 - Nausea with vomiting, unspecified Is this a current diagnosis for this admission?: Yes (3) Elevated LFTs Is this a current diagnosis for this admission?: Yes - Time Time Spent: 30 to 50 Minutes - Inpatient Certification Medical Necessity: Need For IV Fluids, Need for Pain Control, Need for IV Antibiotics, Need for Surgery - Plan Summary Plan Summary: Will obtain CT of Abd/pelvis with po and IV contrast to see if umbilicus has bowel in it and would suggest emergent surgery. Hydrate
[2018-06-11] MEDS: HYDROMORPHONE HCL INJ/PF 2 MG/ML AMPULE IV PRN ×2 (22:46→23:56)
--- NOTE | 2018-06-12 00:33 | RADIOLOGY REPORT (SQ) ---
CT ABDOMEN PELVIS WITH IV CONTRAST HISTORY: Umbilical hernia. COMPARISON: None. TECHNIQUE: CT scan of the abdomen and pelvis with IV contrast. This exam was performed according to our departmental dose-optimization program, which includes automated exposure control, adjustment of the mA and/or kV according to patient size and/or use of iterative reconstruction technique. FINDINGS: Lung bases are clear. No pleural or pericardial effusions. Gallbladder, spleen, pancreas, and adrenal glands are unremarkable. Hepatomegaly and hepatic steatosis. Kidneys are unremarkable without hydronephrosis. 3.1 x 3.0 cm fibroid in the anterior uterine segment. Small umbilical hernia is present. There is a mildly dilated single loop of small bowel within the hernia sac measuring up to 4.2 cm. Inflammatory stranding surrounds the hernia sac. The bowel loops just distal to the hernia sac are not dilated. Mild wall thickening of proximal jejunal bowel loops but without pathologic dilation at this time. Small amount of abdominopelvic ascites is seen. Appendix is normal. Abdominal aorta is normal caliber. No acute osseous findings. IMPRESSION: Mildly dilated loop of small bowel in the umbilical hernia sac with surrounding inflammatory stranding. Mild wall thickening of the proximal jejunal bowel loops. Findings may represent developing small bowel obstruction secondary to incarcerated small bowel in the umbilical hernia.
[2018-06-12] MEDS ORDERED: NORMAL SALINE 1000 ML 1,000 ML IV PRN ×2 (00:52→04:27)
[2018-06-12] MEDS: HYDROMORPHONE HCL INJ/PF 2 MG/ML AMPULE IV PRN ×6 (01:38→20:03)
[2018-06-12] MEDS ORDERED: FENTANYL CITRATE INJ/PF 250 MCG/5 ML AMPULE ONE (02:12)
[2018-06-12] MEDS ORDERED: HYDROMORPHONE HCL INJ/PF 2 MG/ML AMPULE ONE (02:13)
[2018-06-12] MEDS ORDERED: PROPOFOL INJ 200 MG/20 ML VIAL IV ONE (02:13)
[2018-06-12] MEDS ORDERED: MIDAZOLAM 2 MG/2 ML INJ ONE (02:13)
[2018-06-12] MEDS ORDERED: ALBUTEROL SULFATE 0.083% NEB 2.5 MG/3 ML AMPUL NEB PRN (03:16)
[2018-06-12] MEDS ORDERED: OXYCODONE-ACETAMINOPHEN 5-325 MG TABLET PO PRN ×3 (03:20→04:26)
[2018-06-12] MEDS ORDERED: FENTANYL CITRATE INJ/PF 100 MCG/2 ML AMPUL IV PRN ×3 (03:20)
[2018-06-12] MEDS ORDERED: PROMETHAZINE HCL INJ 25 MG/1 ML VIAL IV PRN ×2 (03:20)
[2018-06-12] MEDS ORDERED: MORPHINE SULFATE 10 MG/ML INJ IV PRN (03:20)
[2018-06-12] MEDS ORDERED: DIPHENHYDRAMINE HCL 50 MG/ML VIAL IV PRN (03:20)
[2018-06-12] MEDS ORDERED: MEPERIDINE HCL/PF INJ 25 MG/1 ML DISP.SYRIN IV PRN (03:20)
[2018-06-12] MEDS ORDERED: NALOXONE HCL INJ/PF 0.4 MG/1 ML SDV ONE (03:45)
[2018-06-12] MEDS ORDERED: ONDANSETRON HCL INJ/PF 4 MG/2 ML SDV IV PRN (04:27)
[2018-06-12] MEDS ORDERED: PIPERACILLIN SODIUM/TAZOBACTAM 3.375 GM in NORMAL SALINE 100 ML IV ONE (04:30)
[2018-06-12] MEDS ORDERED: LORAZEPAM INJ 2 MG/1 ML VIAL IV ONE (04:30)
[2018-06-12] MEDS ORDERED: KETOROLAC TROMETHAMINE INJ/PF 30 MG/1 ML SDV INJ ONE (04:30)
[2018-06-12] MEDS: PIPERACILLIN/TAZOBACTAM 3.375 GM VIAL IV ONE (04:50)
[2018-06-12] MEDS ORDERED: ONDANSETRON HCL INJ/PF 4 MG/2 ML SDV ONE (09:08)
[2018-06-12] MEDS ORDERED: SUCCINYLCHOLINE CHLORIDE INJ 200 MG/10 ML VIAL ONE (09:08)
[2018-06-12] MEDS ORDERED: ROCURONIUM BROMIDE INJ 50 MG/5 ML VIAL IV ONE (09:08)
[2018-06-12] MEDS ORDERED: DEXAMETHASONE SOD PHOSPHATE INJ 4 MG/1 ML VIAL ONE (09:08)
[2018-06-12] MEDS ORDERED: GLYCOPYRROLATE 1 MG/5 ML SYRINGE ONE (09:08)
[2018-06-12] MEDS ORDERED: NEOSTIGMINE METHYLSULFATE 10 MG/10 ML VIAL ONE (09:08)
[2018-06-12] MEDS: MAGNESIUM SULFATE/D5W 1 GM/100 ML RTUPB IV SCH ×2 (10:59→13:10)
[2018-06-12] MEDS: LORAZEPAM INJ 2 MG/1 ML VIAL IV SCH ×2 (13:10→20:02)
[2018-06-12] MEDS: PIPERACILLIN SODIUM/TAZOBACTAM 3.375 GM in NORMAL SALINE 100 ML IV SCH ×2 (13:14→19:59)
--- NOTE | 2018-06-12 13:21 | OPERATIVE REPORT E ---
Operative Report NAME: AMBREEN ZENG : 1970 AGE: 47Y DATE OF SURGERY: 06/12/2018 ROOM: 302 PREOPERATIVE DIAGNOSIS: Incarcerated umbilical hernia. POSTOPERATIVE DIAGNOSIS: Incarcerated umbilical hernia. PROCEDURE: Reduction of incarcerated umbilical hernia and primary repair of hernia. SURGEON: VICENTA ANAYA M.D. ANESTHESIA: General. INDICATIONS: This is a 47-year-old female who claims she has a known umbilical hernia for the past few months. Yesterday on 06/10/2018 she complained of vague umbilical pains and on the morning of 06/11/2018 complained of severe pains with nausea and vomiting and went to the ED. CT scan of the abdomen was done which showed incarcerated small bowel in the hernia with possible early obstruction. Attempt was done to reduce the hernia in the ED and was unsuccessful. DESCRIPTION OF PROCEDURE: After adequate general anesthesia, the patient was placed in the supine position and the abdomen prepped and draped in the usual sterile fashion. Appropriate time out was then called. Next, a midline incision just above the hernia and below it was done. The sac was opened and a gush of fluid came out. The sac was then dissected down to the fascia. The sac was opened and the bowel appeared to be dusky. The opening in the hernia fascia was partially divided to about 5 mm. The distal end also was enlarged to about 5 mm with cautery. The bowel was then pulled up over the skin slowly and the warm ABD pads soaked in warm saline were then placed over the bowel for at least 5 minutes. There was improvement in the color of the bowel. The segment of bowel was roughly about 5 cm. Next, with the use of a handheld Doppler the mesentery and the anti-mesentery border of the incarcerated bowel was checked and there was good Doppler flow all throughout. Following this the bowel was then pushed back into the abdominal cavity. The fascial defect from the hernia was measured and was about 1.5 cm in diameter. Because of this the hernia defect was then closed primarily using [id number] sutures using 0 Prolene. Next, the subcutaneous tissue underneath the umbilicus was then sutured to the fascia with 3-0 Vicryl recreating the umbilicus. The skin incisions were then closed with joel. A sterile dressing was placed over the operative site. Needle, instrument, and sponge counts were all correct. Estimated blood loss was about 10 mL. The patient tolerated the procedure well and was brought to the recovery room extubated in satisfactory condition. DICTATING PHYSICIAN: VICENTA ANAYA M.D. [id number] PHY#: [id number] ID: [id number] JOB#: [id number] ACCT: [id number] cc:VICENTA ANAYA M.D. > MTDD
[2018-06-12] MEDS: KETOROLAC TROMETHAMINE INJ/PF 30 MG/1 ML SDV IV SCH ×2 (14:30→20:00)
--- NOTE | 2018-06-12 18:08 | PDOC PROGRESS REPORT ---
Subjective Progress Note for:: 06/12/18 Subjective:: more comfortable tolerating clears Reason For Visit: INCARCERATED UMBILICAL HERNIA Physical Exam Vital Signs: Temp Pulse Resp BP Pulse Ox 98.3 F 78 16 143/72 H 91 L 06/12/18 16:10 06/12/18 16:10 06/12/18 16:10 06/12/18 16:10 06/12/18 16:10 Intake & Output 06/11/18 06/12/18 06/13/18 06:59 06:59 06:59 Intake Total 5183 1155 Output Total 240 600 Balance 4943 555 Weight 75.3 kg Exam: abd is soft with miimal tenderness along incision site Results Impressions: Abdomen/Pelvis CT 06/11/18 00:00 IMPRESSION: Mildly dilated loop of small bowel in the umbilical hernia sac with surrounding inflammatory stranding. Mild wall thickening of the proximal jejunal bowel loops. Findings may represent developing small bowel obstruction secondary to incarcerated small bowel in the umbilical hernia. Assessment & Plan - Diagnosis (1) Incarcerated umbilical hernia Is this a current diagnosis for this admission?: Yes (2) Nausea and vomiting Qualifiers: Vomiting type: unspecified Vomiting Intractability: non-intractable Qualified Code(s): R11.2 - Nausea with vomiting, unspecified Is this a current diagnosis for this admission?: Yes (3) Elevated LFTs Is this a current diagnosis for this admission?: Yes (4) Incarcerated umbilical hernia Is this a current diagnosis for this admission?: Yes - Time Time Spent with patient: 15-24 minutes - Inpatient Certification Medical Necessity: Need For IV Fluids, Need for IV Antibiotics, Risk of Complication if Not Cared For in Hospital - Plan Summary Plan Summary: Gradually increase diet Ambulate Check CBC and BMP and Magnesium
[2018-06-13] MEDS: LORAZEPAM INJ 2 MG/1 ML VIAL IV SCH ×4 (00:15→17:01)
[2018-06-13] MEDS: KETOROLAC TROMETHAMINE INJ/PF 30 MG/1 ML SDV IV SCH ×2 (00:16→05:58)
[2018-06-13] MEDS: PIPERACILLIN SODIUM/TAZOBACTAM 3.375 GM in NORMAL SALINE 100 ML IV SCH ×4 (00:16→17:01)
[2018-06-13 04:52] LABS: ABSOLUTE LYMPHOCYTES (AUTO) 0.9 10^3/uL (0.5-4.7); ABSOLUTE MONOCYTES (AUTO) 0.4 10^3/uL (0.1-1.4); ABSOLUTE NEUT (AUTO) 7.4 10^3/uL (1.7-8.2); BASOPHILS % (AUTO) 0.2 % (0-2); HEMATOCRIT 23.1 % (36.0-47.0); LYMPHOCYTES % (AUTO) 10.5 % (13-45); MEAN CORPUSCULAR HEMOGLOBIN 36.9 pg (27.0-33.4); MEAN CORPUSCULAR VOLUME 105 fl (80-97); MONOCYTES % (AUTO) 4.4 % (3-13); RED BLOOD COUNT 2.19 10^6/uL (3.72-5.28); RED CELL DISTRIBUTION WIDTH 17.8 % (11.5-14.0); SEGMENTED NEUTROPHILS % (AUTO) 84.9 % (42-78); TOTAL CELLS COUNTED % (AUTO) 100 %; WHITE BLOOD COUNT 8.7 10^3/uL (4.0-10.5)
[2018-06-13 04:58] LABS: HEMOGLOBIN 8.1 g/dL (12.0-15.5)
[2018-06-13 05:16] LABS: PLATELET COUNT 93 10^3/uL (150-450)
[2018-06-13 05:19] LABS: ANION GAP 11 (5-19); BLOOD UREA NITROGEN 11 mg/dL (7-20); CALCIUM 8.1 mg/dL (8.4-10.2); CARBON DIOXIDE 21 mmol/L (22-30); CHLORIDE 107 mmol/L (98-107); GLUCOSE 131 mg/dL (75-110); POTASSIUM 3.8 mmol/L (3.6-5.0); SODIUM 138.8 mmol/L (137-145)
[2018-06-13 15:45] LABS: HEMATOCRIT 23.2 % (36.0-47.0); MEAN CORPUSCULAR HEMOGLOBIN 36.1 pg (27.0-33.4); MEAN CORPUSCULAR HGB CONC 34.2 g/dL (32.0-36.0); MEAN CORPUSCULAR VOLUME 106 fl (80-97); RED BLOOD COUNT 2.19 10^6/uL (3.72-5.28); WHITE BLOOD COUNT 8.3 10^3/uL (4.0-10.5)
[2018-06-13 16:18] LABS: HEMOGLOBIN 7.9 g/dL (12.0-15.5); PLATELET COUNT 95 10^3/uL (150-450)
[2018-06-13 16:21] LABS: ABSOLUTE LYMPHOCYTES# (MANUAL) 1.6 10^3/uL (0.5-4.7); ABSOLUTE MONOCYTES # (MANUAL) 0.1 10^3/uL (0.1-1.4); ABSOLUTE NEUTROPHILS# (MANUAL) 6.6 10^3/uL (1.7-8.2); ANISOCYTOSIS 2+; BASOPHILS % (MANUAL) 0 % (0-2); EOSINOPHILS % (MANUAL) 0 % (0-6); LYMPHOCYTES % (MANUAL) 19 % (13-45); METAMYELOCYTES % (MANUAL) 1 % (0); MONOCYTES % (MANUAL) 1 % (3-13); OVALOCYTES 1+; PLATELET COMMENT DECREASED; POIKILOCYTOSIS 2+; POLYCHROMASIA 1+; SEGMENTED NEUTROPHILS % (MAN) 79 % (42-78); TARGET CELLS 2+; TEAR DROP CELLS SLIGHT; TOTAL CELLS COUNTED 100; TOXIC GRANULATION SLIGHT
[2018-06-13 21:39] VITALS: BP 140/69
[2018-06-13 22:02] LABS: HEMATOCRIT 27.2 % (36.0-47.0); HEMOGLOBIN 9.4 g/dL (12.0-15.5); MEAN CORPUSCULAR HEMOGLOBIN 34.6 pg (27.0-33.4); MEAN CORPUSCULAR HGB CONC 34.7 g/dL (32.0-36.0); PLATELET COUNT 102 10^3/uL (150-450); RED BLOOD COUNT 2.73 10^6/uL (3.72-5.28); RED CELL DISTRIBUTION WIDTH 23.2 % (11.5-14.0); WHITE BLOOD COUNT 10.7 10^3/uL (4.0-10.5)
[2018-06-13 22:03] LABS: MEAN CORPUSCULAR VOLUME 100 fl (80-97)
--- NOTE | 2018-06-15 10:21 | DISCHARGE SUMMARY E ---
Discharge Summary NAME: AMBREEN ZENG : 1970 AGE: 47Y ADMITTED: 06/11/2018 DISCHARGED: 06/13/2018 FINAL DIAGNOSIS: 1. INCARCERATED UMBILICAL HERNIA WITH PARTIAL OBSTRUCTION AND DEHYDRATION 2. ELEVATED LIVER FUNCTION TESTS DUE TO ALCOHOLIC FATTY LIVER. 3. ANEMIA DUE TO BLOOD LOSS AND EQUILIBRATION HOSPITAL COURSE: This is a 47-year-old female who was in the hospital 2 months ago for elevated LFTs. She complained of severe abdominal pains on 06/11/2018 and went to ED. She was noted to have an incarcerated umbilical hernia on a CAT scan of the abdomen. She then underwent emergency reduction of umbilical hernia and primary repair on 06/12/[address] Manznaares, surgeon. HOSPITAL COURSE: Patient gradually improved. Tolerating regular diet on the day of discharge. However, her hemoglobin noted to have decreased from 10.2 on admission to 7.9 on the day of discharge. Because of this, she was given a liter of blood, packed cells, and her hemoglobin came up to 9.4. Her incision is clean and dry and the patient tolerating a regular diet. She was then discharged and improved on 06/13/2018 with the above final diagnoses. Patient to be followed by surgical clinic in 1 to 2 weeks. She was advised not to drink alcohol anymore and she promised to do that. DICTATING PHYSICIAN: VICENTA MANZANARES M.D. [id number] PHY#: [id number] ID: [id number] JOB#: [id number] ACCT: [id number] cc:Jesus CARR, VICENTA MANZANARES M.D. > MTDEloy
== END 2018-06-13 23:00 | disposition home or self-care (01) | DRG 354 ==
LOC: ER 20:33 → EH 21:34 → 3N 06-12 05:20 → 3W 06-13 04:38
PROVIDERS: ADMIT Surgery; ATTEND Surgery
PROC: 0WQF0ZZ Repair Abdominal Wall, Open Approach (ICD-10-PCS; principal; 2018-06-12 02:38)
PROC: 30233N1 Transfusion of Nonautologous Red Blood Cells into Peripheral Vein, Percutaneous Approach (ICD-10-PCS; 2018-06-13)
DX: K42.0 Umbilical hernia with obstruction, without gangrene (principal); D62 Acute posthemorrhagic anemia; F17.200 Nicotine dependence, unspecified, uncomplicated; F10.20 Alcohol dependence, uncomplicated; K70.0 Alcoholic fatty liver; E86.0 Dehydration
CPT/HCPCS: 36415; 36430; 74177; 750; 80048; 80053; 83690; 83735; 85025; 85027; 86850; 86900; 86901; 86920; 96374; 99285; J0330; J1100; J1170; J1885; J2060; J2250; J2310; J2405; J2543; J2704; J3010; J3475; J3490; J7030; P9016